=== PATIENT | female | born 1940 | race Caucasian/White ===

== ENCOUNTER 2024-06-09 10:58 | Outpatient (CLI) | payer MEDICARE, SELFPAY | END 2024-06-09 10:59 | disposition home or self-care (01) | LOC: NFLDREF 06-11 21:37 | PROVIDERS: PCP Family Medicine; Referring Provider Family Medicine; Visit Provider Family Medicine | DX: N39.0 Urinary tract infection, site not specified (principal) | CPT/HCPCS: 87086 ==

== ENCOUNTER 2024-06-12 15:54 | Emergency (ER) | payer MEDICARE, SELFPAY ==
[2024-06-12] VITALS (16 sets, daily range): BP systolic 145–182; BP diastolic 58–68; PULSE 69–89; RESP 15–29; TEMP 36.6; O2SAT 95–99; BMI 16.6
--- OUTSIDE RECORDS SUMMARY | 2024-06-12 15:56 | XMS_ITS | Encounter Summary ---
Author Organization [facility] Address [address] [place] [address] Care Team Providers Care Fish And Game Warden Name Role Phone Elsewhere, Pcp Primary Care Provider Unavailabl e Encounter Details Date Type Department Care Team (Late st Contact Info) Description 11/12/2016 Historical Ophthalmology [facility] Afshin Gloria Jr., M.D. [address] [place] [address] Social History Tobacco Use Types Packs/Day Years Used Date Smoking Tobacco: Never Comments Unknown Sex and Gender Information Value Date Recorded Sex Assigned at Female 07/19/2023 8:25 PM CDT Legal Sex Female 7:06 AM FIELD ADMINISTRATOR Gender Identity Female 02/05/2017 9:47 AM FIELD ADMINISTRATOR Sexual Orientation Straight 02/05/2017 9: 47 AM FIELD ADMINISTRATOR documented as of this encounter Progress Notes * Afshin Gloria M.D. - 11/12/2016 12:53 PM CDT Eye General CHIEF COMPLAINT Complete Exam HISTORY OF PRESENT ILLNESS Pt states that she has not noticed any vision changes. Does have a problem with dry eyes and is using Zaditor daily. Lids are dry and uses Refresh PM as needed but continues to have some dryness even when with using. IMPRESSION / REPORT / PLAN #1 Seasonal allergies Continue Zaditor/1 #2 PCIOL Stable #3 Surgical pupil OS Wear sunglasses #4 PVD VF Stable MR only if desired. DIAGNOSIS #1 Seasonal allergies #2 PCIOL #3 Surgical pupil OS #4 PVD VF CDM Reports - EYEGEN Id: [id number] Status: Fnl documented in this encounter Plan of Treatment Not on file documented as of this encounter Visit Diagnoses Not on filedocumented in this encounter Additional Health Concerns Assessment Noted Time PHQ-9 Depression Total Score: 1 10/27/19 17 8:59 AM CDT documented as of this encounter Care Teams Fish And Game Warden Relationship Specialty Start Date End Date Elsewhere, Pcp PCP - General Internal Medicine 05/29/24 [facility] [place] [facility] 06/24/23 [facility] 06/24/23 documented as of this encounter
--- OUTSIDE RECORDS SUMMARY | 2024-06-12 15:56 | XMS_ITS | Encounter Summary ---
Author Organization [facility] Address [address] [place] [address] Care Team Providers Care Keyboard Instrument Tuner Name Role Phone Elsewhere, Pcp Primary Care Provider Unavailabl e Encounter Details Date Type Department Care Team (Late st Contact Info) Description 05/13/2009 Historical Ophthalmology [facility] Richard Cheema M.D. [address] [place] [phone] Social History Tobacco Use Types Packs/Day Years Used Date Smoking Tobacco: Never Assessed Comments Unknown Sex and Gender Information Value Date Recorded Sex Assigned at Female 07/19/2023 8:25 PM CDT Legal Sex Female 7:06 AM BABCOCK TESTER Gender Identity Female 02/05/2017 9:47 AM BABCOCK TESTER Sexual Orientation Straight 02/05/2017 9: 47 AM BABCOCK TESTER documented as of this encounter Progress Notes * Richard Cheema M.D. - 05/13/2009 8:15 AM CDT Eye General CHIEF COMPLAINT Left tear duct plugged. HISTORY OF PRESENT ILLNESS Asked to see patient by Dr. Gloria. Problem started with the left side of her face swelled up in March 2009. Treated with amoxicillin, with relief, but recurred. Referred to Dr. Gloria who prescribed cephalexin and Tobradex for a blocked tear duct. The inflammation again quieted down and has remained quiet. Not using any medication for this presently. Denies nasal or sinus disease, trauma, or surgery but states she has a deviated septum. Has noted excessive tearing from the right eye, as well. Erythromycin allergy: face swelled after oral ingestion. Dr. Gloria did a complete eye exam on April 20. IMPRESSION / REPORT / PLAN #1 History of tearing and dacryocystitis, left eye. Both lacrimal drainage systems are patent to irrigation today. No reflux from the left. She may have had a dacryolith that spontaneously passed, or may still have a stone that may cause nasolacrimal duct obstruction again in the future. If that occurs, I encouraged her to call me. Explained in detail. Letter to Dr. Gloria. DIAGNOSIS #1 History of tearing and dacryocystitis, left eye. CDM Reports - EYEGEN Id: [id number] Status: Fnl documented in this encounter Plan of Treatment Not on file documented as of this encounter Visit Diagnoses Not on filedocumented in this encounter Care Teams Keyboard Instrument Tuner Relationship Specialty Start Date End Date Elsewhere, Pcp PCP - General Internal Medicine 05/29/24 [facility] [place] [facility] 06/24/23 [facility] 06/24/23 documented as of this encounter
--- OUTSIDE RECORDS SUMMARY | 2024-06-12 15:56 | XMS_ITS | Encounter Summary ---
Author Organization [facility] Address [address] [place] [address] Care Team Providers Care Degreasing Solution Reclaimer Name Role Phone Elsewhere, Pcp Primary Care Provider Unavailabl e Encounter Details Date Type Department Care Team (Late st Contact Info) Description 11/03/2009 Historical Ophthalmology [facility] Amilcar Ramirez M.D. [address] [place] [address] Social History Tobacco Use Types Packs/Day Years Used Date Smoking Tobacco: Never Assessed Comments Unknown Sex and Gender Information Value Date Recorded Sex Assigned at Female 07/19/2023 8:25 PM CDT Legal Sex Female 7:06 AM NEEDLE GRINDER Gender Identity Female 02/05/2017 9:47 AM NEEDLE GRINDER Sexual Orientation Straight 02/05/2017 9: 47 AM NEEDLE GRINDER documented as of this encounter Progress Notes * Amilcar Ramirez M.D. - 11/03/2009 7:05 AM CDT Eye General CHIEF COMPLAINT Blind spot in vision; right eye; x 3 weeks HISTORY OF PRESENT ILLNESS This is a 69 year old female here for blind spot in vision; right eye; x 3 weeks; constantly; sudden onset. She is referred by Dr. Gloria for macular hole right eye. Denies floaters and flashes of light. Patient denies ocular pain. AJB: pt awoke with blurred vision RIGHT eye 3 wks ago, stable since then -2 recent dilated exams without complication (pt w/ narrow angles IMPRESSION / REPORT / PLAN Referred by Afshin Gloria M. D. OCT results: 10/2009 right eye: full thickness macular hole with persistent traction left eye: normal foveal contour Color photos consistent with exam. #1 Full thickness macular hole, RIGHT eye -risks, benefits, alternatives to vitrectomy, membrane peeling and gas d/w pt, ?s answered, pt elects to proceed (after CE/IOL RIGHT) #2 trace epiretinal membrane, BOTH eyes #3 Cataracts, BOTH eyes -visually significant BOTH #4 significantly narrow angles -no IOP spike with dilation, but increased risk of high IOP after PPV/MP with intraocular gas -recommend CE/IOL RIGHT prior to vitrectomy surgery (will discuss with Dr. Gloria) -FU 2 wks here after CE/IOL RIGHT w/ Dr. Gloria DIAGNOSIS #1 Full thickness macular hole, RIGHT eye #2 trace epiretinal membrane, BOTH eyes #3 Cataracts, BOTH eyes #4 significantly narrow angles CDM Reports - EYEGEN Id: [id number] Status: Fnl documented in this encounter Plan of Treatment Not on file documented as of this encounter Visit Diagnoses Not on filedocumented in this encounter Care Teams Degreasing Solution Reclaimer Relationship Specialty Start Date End Date Elsewhere, Pcp PCP - General Internal Medicine 05/29/24 [facility] [place] [facility] 06/24/23 [facility] 06/24/23 documented as of this encounter
--- OUTSIDE RECORDS SUMMARY | 2024-06-12 15:57 | XMS_ITS | Clinical Summary ---
Author Organization [facility] Address [address] [place] [id number] Care Team Providers Care Sole Stapler Welt Name Role Phone Pcp, No Primary Care Provider Unavailabl e Allergies Active Allergy Reactions Criticality Noted Date Comments Fexofenadine *Unknown 12/14/2015 Azithromycin Angioedema 04/21/2015 Loratadine *Unknown 12/14/2015 Diatrizoate Allergen *Unknown 12/14/2015 Erythromycin Edema 12/16/2015 Peanut *Unknown 12/19/2015 Cetirizine *Unknown 12/14/2015 Medications montelukast (SINGULAIR) 10 mg tablet Take 10 mg by mouth at bedtime. Active calcium with vitamin D3 (OS-DONNA 500 + D) tablet Take 1 tablet by mouth once daily with a meal. Active ibuprofen (ADVIL; MOTRIN) 100 mg tablet Take 300 mg by mouth 3 times daily. Active diphenhydrAMINE (BENADRYL) 25 mg capsule Take 25 mg by mouth every 4 hours if needed. Active ketotifen (ZADITOR) 0.025 % (0.035 %) ophthalmic solution Place 1 Drop into both eyes every 8 hours if needed for Eye Irritation. Active Social History Tobacco Use Types Packs/Day Years Used Date Smoking Tobacco: Never Smokeless Tobacco: Never Tobacco Cessation:Counseling Given: Yes Alcohol Use Standard Drinks/Week Comments No 0 (1 standard drink = 0.6 oz pur e alcohol) Comments No Sex and Gender Information Value Date Recorded Sex Assigned at Not on file Legal Sex Female 5:20 AM YARN SORTER Gender Identity Not on file Sexual Orientation Not on file Obstetrics History Last Filed Vital Signs Vital Sign Reading Time Taken Comments Blood Pressure 152/76 10/20/2019 1:03 PM CDT tow er Pulse 72 10/20/2019 1:03 PM CDT Temperature 36.6 C (97.9 F) 12/19/2015 9:50 AM CDT Respiratory Rate 16 12/19/2015 11:00 AM CDT Oxygen Saturation 98% 10/20/2019 1:03 PM CDT Inhaled Oxygen Concentration - - Weight 44.3 kg (97 lb 11.2 oz) 10/20/2019 1:03 P M CDT Height 165.1 cm (5' 5) 12/19/2015 7:52 AM CDT Body Mass Index 16.26 12/19/2015 7:52 AM CDT Plan of Treatment Health Maintenance Due Date Last Done Comments Tdap 06/17/1951 Depression screening for age 12+ 1952 Tetanus booster 1960 Pneumococcal series for age 50+ (1 of 1 - PCV) 1990 Zoster (shingles) series for age 50+ (1 of 2) 1990 DEXA/DXA scan for age 65+ 2005 Medicare Wellness for age 65+ 2005 RSV vaccine for adults or pr egnancy (1 - 1-dose 75+ series) 06/17/2015 BMI (ht and wt on same day) for age 18+ 04/20/2016 0 04/21/2015 COVID-19 vaccine series (2023- season) 2023 12/10/2022, 09/21/2021 Influenza Vaccine (Season Ended) 2024 Insurance MEDICARE PART B HB ONLY [place] [address] MEDICARE PART B HB ONLY MEDICARE PART A HB ONLY BLUE CROSS [place] BLUE HB ONLY BLUE CROSS [place] BLUE MR PB ONLY Advance Directives Documents on File Type Date Recorded Patient Scout Executive Expl anation Healthcare Directive 07/07/2013 11:49 AM D [place] EFFECTIVE 11/24/2009 Healthcare Directive 08/17/2011 12:00 AM A DVANCE DIRECTIVE Power of Tobacco Roller 08/16/2011 12:00 AM POA * Full Code (Latest Code Status on File) Date Activated Date Inactivated Comments 12/19/2015 8:30 AM 12/19/2015 1:25 PM Care Teams Sole Stapler Welt Relationship Specialty Start Date End Date Pcp, No . PCP - General 10/20/19
--- OUTSIDE RECORDS SUMMARY | 2024-06-12 15:57 | XMS_ITS | Encounter Summary ---
Author Organization [facility] Address [address] [place] [address] Care Team Providers Care Assistant Professor Of Criminal Justice Name Role Phone Elsewhere, Pcp Primary Care Provider Unavailabl e Encounter Details Date Type Department Care Team (Late st Contact Info) Description 11/10/2015 Historical Ophthalmology [facility] Afshin Gloria Jr., M.D. [address] [place] [address] Social History Tobacco Use Types Packs/Day Years Used Date Smoking Tobacco: Never Assessed Comments Unknown Sex and Gender Information Value Date Recorded Sex Assigned at Female 07/19/2023 8:25 PM CDT Legal Sex Female 7:06 AM STATISTICS INTERN Gender Identity Female 02/05/2017 9:47 AM STATISTICS INTERN Sexual Orientation Straight 02/05/2017 9: 47 AM STATISTICS INTERN documented as of this encounter Progress Notes * Afshin Gloria M.D. - 11/10/2015 9:57 AM CDT Eye General CHIEF COMPLAINT CE HISTORY OF PRESENT ILLNESS Wondering if she can use Zaditor more often, eyes get dry during allergy season. IMPRESSION / REPORT / PLAN #1 Seasonal allergies Continue Zaditor #2 PCIOL Stable #3 Surgical pupil OS Wear sunglasses #4 PVD VF Stable MR only if desired. DIAGNOSIS #1 Seasonal allergies #2 PCIOL #3 Surgical pupil OS #4 PVD VF CDM Reports - EYEGEN Id: [id number] Status: Fnl documented in this encounter Plan of Treatment Not on file documented as of this encounter Visit Diagnoses Not on filedocumented in this encounter Additional Health Concerns Assessment Noted Time PHQ-9 Depression Total Score: 1 10/26/19 16 8:44 AM CDT documented as of this encounter Care Teams Assistant Professor Of Criminal Justice Relationship Specialty Start Date End Date Elsewhere, Pcp PCP - General Internal Medicine 05/29/24 [facility] [place] [facility] 06/24/23 [facility] 06/24/23 documented as of this encounter
--- OUTSIDE RECORDS SUMMARY | 2024-06-12 15:57 | XMS_ITS | Encounter Summary ---
Author Organization [facility] Address [address] [place] [address] Care Team Providers Care Optical Instrument Inspector Name Role Phone Elsewhere, Pcp Primary Care Provider Unavailabl e Encounter Details Date Type Department Care Team (Late st Contact Info) Description 02/08/2010 Historical Ophthalmology [facility] Amilcar Ramirez M.D. [address] [place] [phone] Social History Tobacco Use Types Packs/Day Years Used Date Smoking Tobacco: Never Assessed Comments Unknown Sex and Gender Information Value Date Recorded Sex Assigned at Female 07/19/2023 8:25 PM CDT Legal Sex Female 7:06 AM FELT FINISHER Gender Identity Female 02/05/2017 9:47 AM FELT FINISHER Sexual Orientation Straight 02/05/2017 9: 47 AM FELT FINISHER documented as of this encounter Progress Notes * Amilcar Ramirez M.D. - 02/08/2010 9:35 AM CST Eye Postoperative MULTI-VISIT DOCUMENT This document contains multiple patient visits and is available for review in Document Viewer. CDM Reports - EYEPO Id: [id number] Status: Fnl documented in this encounter Plan of Treatment Not on file documented as of this encounter Visit Diagnoses Not on filedocumented in this encounter Care Teams Optical Instrument Inspector Relationship Specialty Start Date End Date Elsewhere, Pcp PCP - General Internal Medicine 05/29/24 [facility] 06/24/23 [facility] Dental Dentistry 06/24/23 documented as of this encounter
--- OUTSIDE RECORDS SUMMARY | 2024-06-12 15:57 | XMS_ITS | Encounter Summary ---
Author Organization [facility] Address [address] [place] [address] Care Team Providers Care Mobile Homes Repairer Name Role Phone Elsewhere, Pcp Primary Care Provider Unavailabl e Encounter Details Date Type Department Care Team (Late st Contact Info) Description 10/15/2013 Historical Ophthalmology [facility] Afshin Gloria Jr., M.D. [address], [place] [address] Social History Tobacco Use Types Packs/Day Years Used Date Smoking Tobacco: Never Assessed Comments Unknown Sex and Gender Information Value Date Recorded Sex Assigned at Female 07/19/2023 8:25 PM CDT Legal Sex Female 7:06 AM PREPARED FOODS SUPERVISOR Gender Identity Female 02/05/2017 9:47 AM PREPARED FOODS SUPERVISOR Sexual Orientation Straight 02/05/2017 9: 47 AM PREPARED FOODS SUPERVISOR documented as of this encounter Progress Notes * Afshin Gloria M.D. - 10/15/2013 9:12 AM CDT Eye General CHIEF COMPLAINT Pt here for complete eye exam No Va co's IMPRESSION / REPORT / PLAN A) Stable ERM, stable IOL ou P) Hold on MR, rto 1 year CDM Reports - EYEGEN Id: [id number] Status: Fnl documented in this encounter Plan of Treatment Not on file documented as of this encounter Visit Diagnoses Not on filedocumented in this encounter Additional Health Concerns Assessment Noted Time PHQ-9 Depression Total Score: 2 07/08/19 14 10:05 AM CDT documented as of this encounter Care Teams Mobile Homes Repairer Relationship Specialty Start Date End Date Elsewhere, Pcp PCP - General Internal Medicine 05/29/24 [facility] [place] [facility] 06/24/23 [facility] Dental Dentistry 06/24/23 documented as of this encounter
--- OUTSIDE RECORDS SUMMARY | 2024-06-12 15:57 | XMS_ITS | Data Portability ---
Author Organization [place] - [facility], [employer] Address [address] [place] [address] Assessment Encounter Date Assessment Date Assessment LastModified by Organization Details LastModified Time 03/10/2024 03/10/2024 Total nail avulsion performed as documented in procedure section. Educated patient on postprocedure cares (Epsom salt soaks followed by application of triple antibiotic ointment and a band-aid). Patient verbalized understanding and is in agreement with the above treatment plan. Patient will return to clinic in 2-3 weeks for reevaluation. [email or web address] Not available 03/10/2024 16:39:17 Plan of Treatment Reminders Order Date Submit Date Provider Last Modified By Organization Details Last Modified Time Details Appointments None record ed. Lab None record ed. Referral None record ed. Procedures None record ed. Surgeries None record ed. Imaging None record ed. Medication Orders None record ed. Patient TargetsNo targets recorded. Patient InstructionsNo instructions recorded. Reason for Referral None Reported. Problems Name Problem SNOMED Code Status Onset Date Resolution Date Notes Provider Name and Address Organization Details Recorded Time Disorder of tendon 58820258 Active 2014 Disorder of tendon; Original Code: 454031542 Original Codesystem : SNOMED CT Classif ication: Medical Co nfirmation Status: Confirmed Not Available [facility] 3 09:15:43 Acquired equinus deformity of foot 10303691 Active 2014 Acquired equinus deformity of foot; Original Code: 20991494 O riginal Codesystem : SNOMED CT Classif ication: Medical Co nfirmation Status: Confirmed Not Available [facility] 3 09:15:43 Acquired hallux valgus 23741472 Active 2014 Acquired hallux valgus; Original Code: 662373389 Original Codesystem : SNOMED CT Classif ication: Medical Co nfirmation Status: Confirmed Not Available [facility] 3 09:15:43 Allergic rhinitis 19831518 Active 2014 Allergic rhinitis; Original Code: 891356049 Original Codesystem : SNOMED CT Classif ication: Medical Co nfirmation Status: Confirmed Not Available [facility] 3 09:15:43 Notes:Diabetes mellitus type II Original Code: 05605777 Original Codesystem: SNOMED CT Classification: Medical Confirmation Status: Confirmed Problem Notes None recorded. Procedures Surgical History Date Name Laterality Status Provider Name and Address Organization Details Recorded Time 03/10/2024 mkmi&dtota l completed MIO PORTILLO, EDDIE [address] [place], [address], [facility] 03/10/2024 16:37:26 Imaging Results None recorded. Procedure Notes None recorded. Medical Equipment None Reported. Allergies Allergen ID Allergen Name Allergen Category Reaction Reaction Severity Criticality Documentation Date Start Date Code Code System Note Provider Name and Address Organization Details Recorded Time 04658 erythromy garcía medicatio n Not available Not available Not available 04/24/2022 4053 RxNorm Comme nt: React ion Class : Aller gy Al lergy Ident ifier : d0004 6 All ergy Categ ory: Multu m Drug Ident ifier Iden tifie r Assig jessica Autho rity: [address] _[place]_F [place] ; Not Available [facility] 3 08:57:42 11957 doxycycli ne Not available Not available Not available Not available 03/10/2024 3640 RxNorm Bailee menon [facility] 5 09:59:36 Medications Name Sig Start Date Stop Date Status Note LastModified by Organization Details LastModified Time atorvastati n 10 mg tablet TAKE ONE TABLET BY MOUTH EVERY DAY 03/10 completed Not Available Not Available Not Available montelukast 10 mg tablet TAKE ONE TABLET BY MOUTH EVERY EVENING 03/10 completed Not Available Not Available Not Available lisinopril 5 mg tablet TAKE ONE TABLET BY MOUTH EVERY DAY active Not Available Not Available No t Available clobetasol 0.05 % topical ointment APPLY 1 APPLICATI ON TOPICALLY DAILY 03/10 completed Not Available Not Available Not Available mometasone 0.1 % topical cream APPLY 1 APPLICATI ON TOPICALLY 2 TIMES A DAY NEEDED FOR EYE LID RASH. 03/10 completed Not Available Not Available Not Available Vitals Date Recorded Body weight Body mass index (BMI) Body height Provider Name and Address Organization Details Last Updated DateTime 03/09/2024 10274.24 g 16.6 kg/m2 165.1 cm Bailee Hurtado [place] - [facility] 03/10/2024 15:20:41 Social History None recorded. Functional Status None recorded. Mental Status None recorded. Family History Nothing Reported. Medical History No medical history recorded. Gynecological HistoryNo gynecological history recorded. Obstetrics History GPAL:G 0 P 0 0 0 0 Past Encounters Encounter ID Performer Location Encounter Start Date Encounter Closed Date Diagnosis/Indication Diagnosis SNOMED-CT Code Diagnosis ICD10 Code Diagnosis Note [id number] MIO LINDSEYEDDIE AC [facility] [address] [place] [address] 03/09/2024 11:10:44 03/10/2024 11:49:53 Subungual hematoma of great toe 916217153 S90.212A Educated patient on the etiology, prognosis, treatment options for subungual hematoma. Ordered four weightbear ing radiograph s of the left foot at [facility] and reviewed my individual findings with patient as noted above. I explained to the patient that there was no fracture based on the radiograph s. I explained that the pain is likely due to the subungual hematoma and the pressure from the bunion. For the subungual hematoma of the left hallux, given her discomfort and evidence of subungual hematoma, we discussed the utility of a total nail avulsion to alleviate the pain. Reviewed risks and benefits of the procedure. The patient agreed to proceed with the toenail removal. I scheduled the procedure for the following day at the [place] [facility]. I informed the patient that the toenail would take about eight to ten months to grow back. For the hallux valgus of the left foot, I discussed the significan t bunion and its contributi on to the pain and pressure on the toe. I advised the patient to continue wearing her custom orthotics to help manage the condition. Patient verbalized understand ing and is in agreement with the above treatment plan. Pain of to e of left foot 0059898098 74207 M79.675 Acquired l eft hallux valgus 2488148985 84999 M20.12 Acquired r ight hallux valgus 3384757949 45380 M20.11 Acquired h ammer toe of right foot 1798491964 741487 M20.41 Acquired h ammer toe of lesser toe of left foot 3665424326 1887652 M20.42 [id number] MIO PORTILLO DPM [facility] [address] [place] [address] 03/10/2024 14:48:47 03/11/2024 09:36:58 Subungual hematoma of great toe 393002432 S90.212A Pain of to e of left foot 5376297903 13031 M79.675 Acquired l eft hallux valgus 5992356024 66902 M20.12 Acquired r ight hallux valgus 9634698574 96925 M20.11 Acquired h ammer toe of right foot 0688379947 330911 M20.41 Acquired h ammer toe of lesser toe of left foot 8939443816 6470533 M20.42 [id number] MIO PORTILLO DPM [address] [address] 03/30/2024 11:03:34 03/31/2024 10:12:55 Subungual hematoma of great toe 934752602 S90.212A Discussed medical condition with patient today. Procedure site appears to be healing uneventful ly with no signs of infection on exam. At this time, patient may discontinu e foot soaks and triple antibiotic ointment/B and-Aid applicatio n. Encouraged patient to monitor the area daily basis. For the hyperkerat otic lesion of the left hallux, I debrided the callus to alleviate discomfort . I discussed the use of a toe spacer to prevent the hallux from overlappin g the adjacent toe, which may help reduce the formation of future calluses. I provided the patient with a toe cap sleeve to cushion the area and reduce pressure from shoes. Instructed her on proper use. I provided the patient with my contact informatio n and instructed them to call if they experience increased pain or any other concerns. Patient verbalized understand ing and is in agreement with the above treatment plan. Pain of to e of left foot 9128852131 83445 M79.675 Acquired l eft hallux valgus 8166043824 75226 M20.12 Acquired r ight hallux valgus 7112248404 02544 M20.11 Acquired h ammer toe of right foot 6790935253 860182 M20.41 Acquired h ammer toe of lesser toe of left foot 9224010788 2854052 M20.42 Health Concerns Section Related Observation LastModified by Organization Detai ls LastModified Time None Recorded Concern Status LastModified by Organization Details LastModified Time None Recorded Advance Directives Directive None Recorded Payers Encounter Date Sequence Insurance Name Policy Number Policy Caro Covered Member ID Caro Member ID Guarantor Name 03/09/2024 1 [facility] (MEDIC[place]AC[place] [id number] Fabiana A Ceplecha [id number] Fabiana A Ceplecha 03/10/2024 1 [place] [employer] Fabiana A Ceplecha [id number] Fabiana A Ceplecha 03/30/2024 1 [place] [employer] Fabiana A Ceplecha [id number] Fabiana A Ceplecha Notes Date Note Type Note Provider Name and Address Organization Details Recorded Time 03/09/2024 text/html The patient presents with pain in the left hallux, specifically on the outside and tip of the toenail. The pain began about a month ago, although the patient dropped a heavy cast iron skillet on the toe at the end of September or early October. Initially, the injury did not cause significant pain, but it has progressively worsened over the past month. The pain is exacerbated by walking. The patient has not seen any other providers for this issue and did not seek medical attention immediately after the injury. States that there has been dried blood underneath the nail since the injury. MIO PORTILLO, EDDIE [address] [place], [address], [facility] 03/10/2024 10:19:31 03/10/2024 text/html Patient presents today for scheduled total nail avulsion of the left hallux. Denies any questions or changes since last being seen. PRIOR HISTORY:The patient presents with pain in the left hallux, specifically on the outside and tip of the toenail. The pain began about a month ago, although the patient dropped a heavy cast iron skillet on the toe at the end of September or early October. Initially, the injury did not cause significant pain, but it has progressively worsened over the past month. The pain is exacerbated by walking. The patient has not seen any other providers for this issue and did not seek medical attention immediately after the injury. States that there has been dried blood underneath the nail since the injury. MIO PORTILLO, EDDIE [address] [place], [address], [facility] 03/10/2024 16:40:55 03/30/2024 text/html Patient presents today with her son s/p total nail avulsion to the left hallux. The patient reports that the toe has been healing as expected but still experiences some soreness, especially when pressure is applied to a callus to the tip of the toe. The patient has been soaking the toe twice a day. The patient also notes that the hallux sits on top of the adjacent toe, which may be contributing to the formation of the callus. PRIOR HISTORY:The patient presents with pain in the left hallux, specifically on the outside and tip of the toenail. The pain began about a month ago, although the patient dropped a heavy cast iron skillet on the toe at the end of September or early October. Initially, the injury did not cause significant pain, but it has progressively worsened over the past month. The pain is exacerbated by walking. The patient has not seen any other providers for this issue and did not seek medical attention immediately after the injury. States that there has been dried blood underneath the nail since the injury. MIO PORTILLO DPM [address] [place], [address], [facility] 03/30/2024 20:21:45 OBGyn Episode No OBEpisode recorded.
--- OUTSIDE RECORDS SUMMARY | 2024-06-12 15:57 | XMS_ITS | Encounter Summary ---
Author Organization [facility] Address [address] [place] [address] Care Team Providers Care Heating Element Repairer Name Role Phone Elsewhere, Pcp Primary Care Provider Unavailabl e Encounter Details Date Type Department Care Team (Late st Contact Info) Description 11/24/2009 Historical Ophthalmology [facility] Amilcar Ramirez M.D. [address] [place] [address] Social History Tobacco Use Types Packs/Day Years Used Date Smoking Tobacco: Never Assessed Comments Unknown Sex and Gender Information Value Date Recorded Sex Assigned at Female 07/19/2023 8:25 PM CDT Legal Sex Female 7:06 AM ASBESTOS REMOVAL WORKER Gender Identity Female 02/05/2017 9:47 AM ASBESTOS REMOVAL WORKER Sexual Orientation Straight 02/05/2017 9: 47 AM ASBESTOS REMOVAL WORKER documented as of this encounter Progress Notes * Amilcar Ramirez M.D. - 11/24/2009 7:38 AM CDT Eye General CHIEF COMPLAINT return following cataract surgery HISTORY OF PRESENT ILLNESS This is a 69 year old female here for an evaluation of macular hole. She is 2 weeks status post cataract surgery in the right eye. Currently using Omnipred 2x day in the right eye. Patient states vision is brighter, but there is still a spot in the middle. Patient denies ocular pain. Denies flashesof light; occasional floaters. IMPRESSION / REPORT / PLAN Referred by Afshin Gloria M. D. OCT results: 10/2009 right eye: full thickness macular hole with persistent traction left eye: normal foveal contour Color photos consistent with exam. #1 Full thickness macular hole, RIGHT eye -risks, benefits, alternatives to vitrectomy, membrane peeling and gas d/w pt, ?s answered, pt elects to proceed #2 trace epiretinal membrane, BOTH eyes #3 Cataracts, LEFT eye -visually significant #4 Pseuodophakic, RIGHT eye -looks good #5 significantly narrow angle, LEFT -markedly improved RIGHT eye after CE/IOL RIGHT by Dr. Gloria - post operatively DIAGNOSIS #1 Full thickness macular hole, RIGHT eye #2 trace epiretinal membrane, BOTH eyes #3 Cataracts, LEFT eye #4 Pseuodophakic, RIGHT eye #5 significantly narrow angle, LEFT CDM Reports - EYEGEN Id: [id number] Status: Fnl documented in this encounter Plan of Treatment Not on file documented as of this encounter Visit Diagnoses Not on filedocumented in this encounter Care Teams Heating Element Repairer Relationship Specialty Start Date End Date Elsewhere, Pcp PCP - General Internal Medicine 05/29/24 [facility] [place] [facility] 06/24/23 [facility] Dentistry 06/24/23 documented as of this encounter
--- OUTSIDE RECORDS SUMMARY | 2024-06-12 15:57 | XMS_ITS | Encounter Summary ---
Author Organization [facility] Address [address] [place] [address] Care Team Providers Care Study Abroad Advisor Name Role Phone Elsewhere, Pcp Primary Care Provider Unavailabl e Encounter Details Date Type Department Care Team (Late st Contact Info) Description 10/22/2014 Historical Ophthalmology [facility] Afshin Gloria Jr., M.D. [address] [place] [address] Social History Tobacco Use Types Packs/Day Years Used Date Smoking Tobacco: Never Assessed Comments Unknown Sex and Gender Information Value Date Recorded Sex Assigned at Female 07/19/2023 8:25 PM CDT Legal Sex Female 7:06 AM FLOOR CARE SPECIALIST Gender Identity Female 02/05/2017 9:47 AM FLOOR CARE SPECIALIST Sexual Orientation Straight 02/05/2017 9: 47 AM FLOOR CARE SPECIALIST documented as of this encounter Progress Notes * Afshin Gloria M.D. - 10/22/2014 9:37 AM CDT Eye General CHIEF COMPLAINT CE HISTORY OF PRESENT ILLNESS Pt here for complete eye exam No Va co's IMPRESSION / REPORT / PLAN A) Stable eye exam P) Zaditor BID x 2 weeks, then prn CDM Reports - EYEGEN Id: [id number] Status: Fnl documented in this encounter Plan of Treatment Not on file documented as of this encounter Visit Diagnoses Not on filedocumented in this encounter Additional Health Concerns Assessment Noted Time PHQ-9 Depression Total Score: 0 07/14/19 15 10:04 AM CDT documented as of this encounter Care Teams Study Abroad Advisor Relationship Specialty Start Date End Date Elsewhere, Pcp PCP - General Internal Medicine 05/29/24 [facility] [place] [facility] 06/24/23 [facility] Dentistry 06/24/23 documented as of this encounter
--- OUTSIDE RECORDS SUMMARY | 2024-06-12 15:57 | XMS_ITS | Encounter Summary ---
Author Organization [facility] Address [address] [place] [address] Care Team Providers Care Craft Recruiter Name Role Phone Elsewhere, Pcp Primary Care Provider Unavailabl e Encounter Details Date Type Department Care Team (Late st Contact Info) Description 01/24/2010 Historical Ophthalmology [facility] Chuck Ruiz M.D., M.S. [address] [place] [address] Social History Tobacco Use Types Packs/Day Years Used Date Smoking Tobacco: Never Assessed Comments Unknown Sex and Gender Information Value Date Recorded Sex Assigned at Female 07/19/2023 8:25 PM CDT Legal Sex Female 7:06 AM ELECTRIC WHEELCHAIR REPAIRER Gender Identity Female 02/05/2017 9:47 AM ELECTRIC WHEELCHAIR REPAIRER Sexual Orientation Straight 02/05/2017 9: 47 AM ELECTRIC WHEELCHAIR REPAIRER documented as of this encounter Progress Notes * Chuck Ruiz M.D. - 01/24/2010 8:58 AM CST Eye Postoperative MULTI-VISIT DOCUMENT This document contains multiple patient visits and is available for review in Document Viewer. CDM Reports - EYEPO Id: [id number] Status: Fnl documented in this encounter Plan of Treatment Not on file documented as of this encounter Visit Diagnoses Not on filedocumented in this encounter Care Teams Craft Recruiter Relationship Specialty Start Date End Date Elsewhere, Pcp PCP - General Internal Medicine 05/29/24 [facility] Optometry 06/24/23 [facility] Dental Dentistry 06/24/23 documented as of this encounter
--- OUTSIDE RECORDS SUMMARY | 2024-06-12 15:57 | XMS_ITS | Encounter Summary ---
Author Organization [facility] Address [address] [place] [address] Care Team Providers Care Naturopathic Doctor Name Role Phone Elsewhere, Pcp Primary Care Provider Unavailabl e Encounter Details Date Type Department Care Team (Late st Contact Info) Description 06/28/2010 Historical Ophthalmology [facility] Amilcar Ramirez M.D. [address] [place] [address] Social History Tobacco Use Types Packs/Day Years Used Date Smoking Tobacco: Never Assessed Comments Unknown Sex and Gender Information Value Date Recorded Sex Assigned at Female 07/19/2023 8:25 PM CDT Legal Sex Female 7:06 AM TAX ANALYST Gender Identity Female 02/05/2017 9:47 AM TAX ANALYST Sexual Orientation Straight 02/05/2017 9: 47 AM TAX ANALYST documented as of this encounter Progress Notes * Amilcar Ramirez M.D. - 06/28/2010 7:11 AM CDT Eye General CHIEF COMPLAINT check up after surgery HISTORY OF PRESENT ILLNESS Patient states that since last visit here in January 2010, she had cataract surgery on her left eye in March by Dr. Gloria in [place], [place]. She did get new glasses since cataract surgery. She denies any vision acuity concerns at distance or near with either eye. She denies flashes of light, floaters, pain or pressure with either eye. 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
--- OUTSIDE RECORDS SUMMARY | 2024-06-12 15:57 | XMS_ITS | Clinical Summary ---
Author Organization [facility] Address [address] [place] [address] Care Team Providers Care Travel Attendants Name Role Phone Elsewhere, Pcp Primary Care Provider Unavailabl e Source Comments Patient records contain information from all sites at [facility]. For routine questions regarding patient records, call [phone] during business hours, M-F 8:00 AM - 5:00 PM Central Time. Record requests for emergency care only can be directed to [phone] at any time.[facility] Allergies Active Allergy Reactions Criticality Noted Date Comments Azithromycin Angioedema (Reselect Reaction) 04/21/2015 Cetirizine Other (see comments) 11/04/2009 Iodinated Contrast Media Other (see comments) 0 11/04/2009 Erythromycin Other (see comments) 11/04/2009 Fexofenadine Other (see comments) 11/04/2009 Loratadine Other (see comments) 11/04/2009 Peanut Other (see comments) 12/19/2015 ANY NUTS Medications * This document contains information received from the source organization and may not represent a complete record from that organization. CALCIUM CARB/VIT D3/MINERALS (CALCIUM-VITAMI N D ORAL) Take 1 tablet by mouth daily. 0 Active dextran 70/hypromellose (GENTEAL TEARS MILD OPHT) Administer 1 drop into affected eye(s) as needed. Active UNABLE TO FIND daily. Med Name: sinus rinse Active acetaminophen (TYLENOL) 325 mg tablet Take 325-650 mg by mouth every 4 (four) hours as needed for pain or headaches. Active white petrolatum (Aquaphor Healing) 41 % ointment Apply topically as needed. Apply to dry eye lids as needed Active clobetasoL (TEMOVATE) 0.05 % ointment Apply 1 Application topically daily. 30 g 4 Active lisinopriL (PRINIVIL,ZESTR IL) 5 mg tabletIndicatio ns:Hypertensive Chronic Kidney Disease (CKD) Stage 3a Glomerular Filtration Rate (GFR) 45 To 59 (HCC) Take 1 tablet (5 mg total) by mouth daily. 90 tablet 3 4 Active mometasone (ELOCON) 0.1 % cream Apply 1 Application topically 2 (two) times a day as needed (eye lid rash). 45 g 2 4 Active montelukast (Singulair) 10 mg tabletIndicatio ns:Rhinitis Allergic Take 1 tablet (10 mg total) by mouth every evening. 90 tablet 3 4 06/24/19 25 Active Additional Information Patient taking differently:10 mg oral Every evening,As needed, Reported on 08/29/2023 Active Problems Problem Noted Date Diagnosed Date Hyperparathyroidism Primary 04/28/2021 Hypercalcemia 12/05/2020 Hyperlipidemia Mixed 11/24/2018 Rhinitis Allergic 11/24/2018 Osteoporosis 11/24/2018 Overview (11/24/2018): most recent DEXA on 09/24/2017 Loss Hearing Sensorineural Bilateral 07/07/2013 Overview (12/03/2019): confrimned audiology and ENT Hypertensive Chronic Kidney Disease With Stage 1 Through Stage 4 Chronic Kidney Disease, Or Unspecified Chronic Kidney Disease Overview (12/18/2019): December 17, 2019: eGFR 51 Resolved Problems Problem Noted Date Diagnosed Date Resolved Date History Of Falling 12/03/2019 1 Impaired Fasting Glucose 11/24/2018 Encounters Date Type Department Care Team Description 04/21/2024 Orders Only [facility] PCP [facility] Saniya Shea M.D. Screening Examination Diabetes Mellitus; Monitoring For Therapeutic Drug Therapy from Last 3 Months Immunizations Immunization Administration Dates Next Due HZV (ZOSTAVAX) 10/26/2016 Influenza, Quadrivalent, Adj uvanted, Preservative Free 11/12/2022,11/21/2021,11/21/2020,2019 Influenza, Seasonal, Injectable 11/26/19 13,11/26/2011,11/28/2009,2008,12/09/2007,12/09/2006,12/18/2005,1 Influenza, Unspecified 11/27/2016,2015,11/23/2014,2013,11/26/2011,12/01/2010,11/28/2009 PCV13 07/13/2014 PPSV23 07/31/2005 RSV: respiratory syncytial v irus (ABRYSVO) bivalent vaccine 01/23/2023 RZV (SHINGRIX) 12/27/2022,10/03/2022 SARS-COV-2 (COVID-19) - MODE RNA (12 YEARS AND OLDER) Fall Seasonal 12/10/2022 SARS-COV-2 (COVID-19) - PFIZ ER TS(Discontinued)(12 years or older) 09/21/2021 Td (Adult), adsorbed 11/15/2009 Td Preservative Free (TENIVA C, DECAVAC) 11/15/2009 Tdap 12/03/2019 influenza trivalent high dos e (HD)(PF) 11/24/2018,12/03/2017,11/23/2014 influenza vaccine quad (FLUZONE/FLUARIX) (6 months and older)(PF) 11/27/2016,11/21/2015 Family History Medical History Relation Name Comments Hyperlipidemia Daughter 1 Nery Hyperlipidemia Daughter 2 [place] No Known Problems Daughter 3 Lindsey No Known Problems Daughter 4 Maddison Hyperlipidemia Daughter 5 [place] Westrum Migraines Daughter 5 [place] Westrum Coronary artery disease Father Jose Enrique Trevino Hyperlipidemia Father Jose Enrique Trevino Pacemaker rhythm Father Jose Ernique Trevino Breast cancer Father's Sister 1 Breast cancer Father's Sister 2 Heart attack Maternal Grandfather Heart attack Maternal Grandmother Anxiety disorder Mother Jo Ann Trevino Asthma Mother Jo Ann Trevino Drug abuse Mother Jo Ann Trevino Heart disease Mother Jo Ann Trevino Hypertension Mother Jo Ann Trevino Osteoporosis Mother Jo Ann Trevino No Known Problems Paternal Grandfather Stroke Paternal Grandmother Arthritis Sister jonathan Hypertension Sister jonathan Hyperlipidemia Son Charles Relation Name Status Comments Daughter 1 Nery Alive Daughter 2 [place] Alive Daughter 3 Lindsey Alive Daughter 4 Maddison Alive Daughter 5 [place] Westrum Father Jose Enrique Trevino (Age 92) Father's Sister 1 Father's Sister 2 Maternal Grandfather (Age 70) Maternal Grandmother (Age 70) Mother Jo Ann Trevino (Age 92) Paternal Grandfather (Age 85) Paternal Grandmother (Age 70) Sister jonathan Alive Son Charles Alive Social History Tobacco Use Types Packs/Day Years Used Date Smoking Tobacco: Never Smokeless Tobacco: Never Tobacco Cessation:Counseling Given: Yes Alcohol Use Standard Drinks/Week Comments No 0 (1 standard drink = 0.6 oz pur e alcohol) [facility] [employer] Answer Date Recorded In the past 12 months has [facility] [employer], [employer], or water [employer] threatened to shut off services in your home? No 07/19/2023 Humiliation, Afraid, Rape, and Kick questionnair e Answer Date Recorded Within the last year, have y ou been afraid of your partner or ex-partner? No 12/05/2020 Within the last year, have y ou been humiliated or emotionally abused in other ways by your partner or ex-partner? No Within the last year, have y ou been kicked, hit, slapped, or otherwise physically hurt by your partner or ex-partner? No 12/05/2020 Within the last year, have y ou been raped or forced to have any kind of sexual activity by your partner or ex-partner? No 12/05/2020 Social Connection and Isolat ion Panel [NHANES] Answer Date Recorded In a typical week, how many times do you talk on the phone with family, friends, or neighbors? Three times a week 12/05/2020 How often do you get togethe r with friends or relatives? Once a week 12/05/2020 How often do you attend [facility] or congregational services? More than 4 times per year 12/05/2020 Do you belong to any clubs o r organizations such as christian groups, unions, fraternal or athletic groups, or school groups? Yes 12/05/2020 How often do you attend meet ings of the clubs or organizations you belong to? More than 4 times per year 12/05/2020 Are you , , di vorced, , never , or living with a partner? 12/05/2020 AUDIT-C Answer Date Recorded Q1: How often do you have a drink containing alc ohol? Never 12/05/2020 Average Number of Drinks Not on file 021 Frequency of Binge Drinking Not on file 11/18 Overall Financial Resource Strain (CARDIA) Answe r Date Recorded How hard is it for you to pa y for the very basics like food, housing, medical care, and heating? Not very hard 12/05/2020 PHQ-2 Answer Date Recorded PHQ-2 Score 0 06/24/2023 [facility] - Occupational Stress Questionnaire Answer Date Recorded Do you feel stress - tense, restless, nervous, or anxious, or unable to sleep at night because your mind is troubled all the time - these days? Only a little 12/05/2020 Exercise Vital Sign Answer Date Recorde d On average, how many days pe r week do you engage in moderate to strenuous exercise (like a brisk walk)? Patient declined On average, how many minutes do you engage in exercise at this level? Patient declined 06/24/2023 Hunger Vital Sign Answer Date Recorded Within the past 12 months, y ou worried that your food would run out before you got the money to buy more. Never true 07/19/19 24 Within the past 12 months, t he food you bought just didn't last and you didn't have money to get more. Never true 07/19/2023 PRAPARE - Transportation Answer Date Re corded In the past 12 months, has l ack of transportation kept you from medical appointments or from getting medications? No 06/20 In the past 12 months, has l ack of transportation kept you from meetings, work, or from getting things needed for daily living? No 07/19/2023 Depression Answer Date Recor ded PHQ-9 Total Score (max 27) 1 12/05 Nutrition Answer Date Recorded On average, how many serving s of fruits and vegetables do you eat per day (serving size is equal to 1 cup or approximately the size of a tennis ball)? 3-5 06/24/2023 Dental Answer Date Recorded Dental: Regular Dentist Yes 02/18/19 Employment Answer Date Recorded Employment status Retired 06/24/2023 Housing Stability Answer Date Recorded What is your living situation today? I have a [facility] place to live 07/19/2023 Education Answer Date Recorded What is the highest level of school you have completed or the highest degree you have received? 12th grade 12/05/2020 Comments No Sex and Gender Information Value Date Recorded Sex Assigned at Female 07/19/2023 8:25 PM CDT Legal Sex Female 7:06 AM HOUSING INSTALLER Gender Identity Female 02/05/2017 9:47 AM HOUSING INSTALLER Sexual Orientation Straight 02/05/2017 9: 47 AM HOUSING INSTALLER Last Filed Vital Signs Vital Sign Reading Time Taken Comments Blood Pressure 133/71 01/31/2024 11:23 AM HOUSING INSTALLER Pulse 72 01/31/2024 11:23 AM HOUSING INSTALLER Temperature 36.5 C (97.7 F) 01/31/2024 11:23 AM HOUSING INSTALLER Respiratory Rate 16 01/31/2024 11:23 AM HOUSING INSTALLER Oxygen Saturation 98% 01/31/2024 11:23 AM HOUSING INSTALLER Inhaled Oxygen Concentration - - Weight 42.7 kg (94 lb 3.2 oz) 08/29/2023 9:18 AM CDT Height 162.3 cm (5' 3.9) 07/26/2023 9:24 AM CDT Body Mass Index 16.22 07/26/2023 9:24 AM CDT Plan of Treatment Health Maintenance Due Date Last Done Comments COVID-19 Vaccine ( season) 2023 12/10/2022, 09/21/2021, 11/25/2020, Additional history exists Influenza Vaccine (#1) 2023 , 11/21/2021, 11/21/2020, Additional history exists Depression Screening (Annual PHQ-2) 02/19/2024 Fall Risk Screen (Annual) 02/19/2024 Fasting Glucose for Diabetes Screening 07/15/2024 07/16/2023, 08/10/2022, 07/11/2022, Additional history exists Potassium Level 07/15/2024 07/16/2023, 07/20, 07/11/2022, Additional history exists Sodium Level 07/15/2024 07/16/2023, 07/20, 07/11/2022, Additional history exists Creatinine Level (Kidney Function Test) 01/30/2025 01/31/2024, 07/16/2023, 08/10/2022, Additional history exists Office Visit for Blood Pressure Check / Re-check 01/30/2025 01/31/2024 DTaP,Tdap,and Td Vaccines (2 - Td or Tdap) 12/02/2029 12/03/2019, 11/15/2009, 11/15/2009 Pneumococcal vaccine (50+ years) Completed 07/13/2014, 07/31/2005 Mammogram Discontinued 12/29/2020, 11/18, 11/27/2017, Additional history exists Zoster Vaccines Completed 12/27/2022, 09/18, 10/26/2016 RSV vaccine - (32-36 weeks) or 60+ years Completed 01/23/2023 Visit: Medicare Annual Wellness Discontinued 06/24/2023 IPV Vaccines Aged Out No longer eligi ble based on patient's age to complete this topic Goals Goal Patient Goal Type Associated Problems Recent Progress Patient-Stated? Author Eat a balanced, healthy diet Diet No Shilpa Sotelo R.N. Note: Continue 30 minutes 3x a week Exercise No Shilpa Sotelo, R.N. Note: Continue Medical Devices Implanted Type Area Color Straining Bag Washer Device Identifier Shelf Expiration Date Model / Serial / Lot Ocular Lens Ocular Lens Eye Procedures Procedure Name Priority Date/Time Associated Diagnosis Comments CREATININE WITH EGFR, S/P Routine 01/31/2024 10:26 AM HOUSING INSTALLER Hyperparathyroidi sm Primary (HCC) Hypertensive Chronic Kidney Disease With Stage 1 Through Stage 4 Chronic Kidney Disease, Or Unspecified Chronic Kidney Disease Osteoporosis HEMOGLOBIN A1C, B Routine 07/16/2023 8:5 1 AM CDT Impaired Fasting Glucose SODIUM, S/P Routine 07/16/2023 8:51 AM CDT Hypertensive Chronic Kidney Disease (CKD) Stage 3a Glomerular Filtration Rate (GFR) 45 To 59 POTASSIUM, S/P Routine 07/16/2023 8:51 AM CDT Hypertensive Chronic Kidney Disease (CKD) Stage 3a Glomerular Filtration Rate (GFR) 45 To 59 BI BREAST SCREENING BILATERAL WITH TOMOSYNTHESIS RAD - Routine (most inpatients and all outpatients) 12/29/2020 9:14 AM HOUSING INSTALLER Screening Mammogram Breast Cancer from Last 3 Months or Most Recently Relevant to Health Maintenance Results * (ABNORMAL) Creatinine with Estimated GFR (01/31/2024 10:26 AM HOUSING INSTALLER) Creatinine 1.12(H) 0.59 - 1.04 mg/dL 01/31/2024 11:02 AM HOUSING INSTALLER NPRG Estimated GFR (eGFR) 49(L) >=60 mL/min/BSA 01/31/2024 11:02 AM HOUSING INSTALLER NPRG Comment: Estimated GFR calculated using the 2020 CKD_EPI creatinine equation. Blood (Blood, Venous) 01/31/2024 10:26 AM HOUSING INSTALLER 01/31/2024 10:30 AM HOUSING INSTALLER Deborah Ray APRN, C.N.P. LAB BLOOD ADD-ON Fi nal Result [facility] [address] [place] [address], [place] NPRG [facility] [address] [place] [address] * Sodium (07/16/2023 8:51 AM CDT) Sodium, P 138 135 - 145 mmol/L 07/16/2023 11:22 AM CDT NPRG Blood (Blood, Venous) 07/16/2023 8:51 AM CDT 07/16/2023 10:44 AM CDT Saniya Shea M.D. LAB BLOOD ADD-ON Final Resu lt [facility] [address] [place] [address], [facility] NPRG [address] [place] [address] * Potassium (07/16/2023 8:51 AM CDT) Potassium, P 4.3 3.6 - 5.2 mmol/L 07/16/2023 11:22 AM CDT NPRG Blood (Blood, Venous) 07/16/2023 8:51 AM CDT 07/16/2023 10:44 AM CDT us Saniya Shea M.D. LAB BLOOD ADD-ON Final Resu lt Performing Organization Address City/[facility]/ZIP Co de Phone Number [facility] [address] [place] [address], [facility] NPRG [address] [place] [address] * Hemoglobin A1c (07/16/2023 8:51 AM CDT) Hemoglobin A1c, B 5.5 4.2 - 5.6 % 07/16/2023 11:26 AM CDT NPRG Blood (Blood, Venous) 07/16/2023 8:51 AM CDT 07/16/2023 10:44 AM CDT Saniya Shea M.D. LAB BLOOD ADD-ON Final Resu lt [facility] [address] [place] [address], [facility] NPRG [address] [place] [address] * BI Breast Screening Bilateral with Tomosynthesis (12/29/2020 9:14 AM HOUSING INSTALLER) Anatomical Region Laterality Modality Breast, Breast Imaging RST L OS, Breast Imaging ARZ LOS, Breast Imaging FLA LOS Bilateral Mammography 12/29/2020 12:5 5 PM HOUSING INSTALLER Impressions 12/29/2020 12:56 PM HOUSING INSTALLER Negative. RECOMMENDATION: Annual Screening Mammogram ASSESSMENT: BI-RADS: 1: Negative. Narrative 12/29/2020 12:56 PM HOUSING INSTALLER EXAM: BI BREAST SCREENING BILATERAL WITH TOMOSYNTHESIS Current study was evaluated with a Computer Aided Detection (CAD) system. INDICATION: Screening mammogram. COMPARISON: Prior exam(s) were available and reviewed for comparison. DENSITY: c. The breast(s) are heterogeneously dense, which may obscure small masses. FINDINGS: No findings of malignancy. No significant change since prior exam. Procedure Note Wilian Rodriges M.D. - 12/29/2020 EXAM: BI BREAST SCREENING BILATERAL WITH TOMOSYNTHESIS Current study was evaluated with a Computer Aided Detection (CAD) system. INDICATION: Screening mammogram. COMPARISON: Prior exam(s) were available and reviewed for comparison. DENSITY: c. The breast(s) are heterogeneously dense, which may obscuresmall masses. FINDINGS: No findings of malignancy. No significant change since priorexam. IMPRESSION: Negative. RECOMMENDATION: Annual Screening Mammogram ASSESSMENT: BI-RADS: 1: Negative. Ricardo Gutierres P.A.-C. IMG BI PROCEDURES Yuliana l Result from Last 3 Months or Most Recently Relevant to Health Maintenance Insurance [facility] MEDICARE Advance Directives For more information, please contact: [phone] Documents on File Type Date Recorded Patient Criminal Justice Program Director Expl anation Advance Directives 08/12/2013 12:00 AM Leg acy document. See document viewer. Care Teams Travel Attendants Relationship Specialty Start Date End Date Elsewhere, Pcp PCP - General Internal Medicine 05/29/24 [facility] 06/24/23 [facility] 06/24/23
--- NOTE | 2024-06-12 16:05 | ED_ITS ---
<Statement entered by Kyleigh Ignacio MD - 06/22/24 16:17> Inadvertently opened HPI - General Adult General Time Seen by Provider: 16:05 Date Seen: 06/12/24 Chief complaint: Hypertension Stated complaint: High blood pressure, feeling lousy, headache Time Seen by Provider: 06/12/24 16:01 Source: patient, RN notes reviewed and old records reviewed Mode of arrival: ambulatory Limitations: no limitations History of Present Illness HPI narrative: This 83-year-old female is independently ambulatory into the ED with concern of elevated blood pressure in just not feeling well today. She lives at [facility] in independent living which is across the road from , she walked over here. While walking over here, she developed a frontal headache but that had not been there until then. She notes she woke up at about 830, just was not feeling well, had been monitoring her blood pressure and was elevated. No headache prior to now, no chest pain, shortness of breath. She is had no neurologic changes on questioning, no visual changes. Her appetite is diminished but she did eat lunch, no nausea or vomiting, no abdominal pain, no diarrhea, no urinary symptoms. Outside of the mild headache, no new pain complaints. She does have stage IIIA chronic kidney disease and underlying hypertension. She is maintained on lisinopril 5 mg daily. She has not noted any ill contacts, she herself has not had any specific signs or symptoms of illness. She does have a chronic cough, states she gets postnasal drainage causing her to cough, her cough is not new and is unchanged. She has had no fevers or chills. Related Data Home Medications ?Medication ?Instructions ?Recorded ?Confirmed clobetasol 0.05 % topical ointment 1 applic topical QDAY 05/28/24 06/17/24 mometasone 0.1 % topical solution 1 applic topical QDAY 05/28/24 06/17/24 montelukast 10 mg tablet 10 mg PO QDAY 05/28/24 06/17/24 calcium carbonate 600 mg PO QDAY 06/09/24 06/17/24 Previous Rx's ?Medication ?Instructions ?Recorded lisinopril 5 mg tablet 5 mg PO DAILY #90 tabs 05/28/24 Allergies Allergy/AdvReac Type Severity Reaction Status Date / Time doxycycline Allergy Severe Eyes Verified 06/17/24 15:03 swelled shut erythromycin base Allergy Severe Eyes Verified 06/17/24 15:03 Swelled Shut atorvastatin (From Lipitor) AdvReac Unknown Muscle Verified 06/17/24 15:03 Pain & Weakness Review of Systems Status of ROS: Reports: 6 or more systems reviewed and unremarkable except as noted in History and below [facility] Medical History (Updated 06/17/24 @ 15:29 by Paulina Eugene MD) Dyslipidemia ?E78.5 - Hyperlipidemia, unspecified (ICD-10) Hallux valgus with bunions ?M20.10 - Hallux valgus (acquired), unspecified foot (ICD-10) ?M21.619 - Bunion of unspecified foot (ICD-10) Chronic cough ?R05.3 - Chronic cough (ICD-10) Nasal septal deviation ?J34.2 - Deviated nasal septum (ICD-10) History of adenomatous polyp of colon ?Z86.0101 - Personal history of adenomatous and serrated colon polyps (ICD- 10) Osteoporosis ?M81.0 - Age-related osteoporosis without current pathological fracture (ICD- 10) Sensorineural hearing loss (SNHL) of both ears ?H90.3 - Sensorineural hearing loss, bilateral (ICD-10) Hyperparathyroidism ?E21.3 - Hyperparathyroidism, unspecified (ICD-10) Hypercalcemia ?E83.52 - Hypercalcemia (ICD-10) Pes planus ?M21.40 - Flat foot [pes planus] (acquired), unspecified foot (ICD-10) Surgical History History of vaginal delivery History of right breast biopsy (1969) ?Z98.890 - Other specified postprocedural states (ICD-10) History of tonsillectomy (1949) ?Z90.89 - Acquired absence of other organs (ICD-10) History of cataract surgery ?Z98.49 - Cataract extraction status, unspecified eye (ICD-10) History of appendectomy (1989) ?Z90.49 - Acquired absence of other specified parts of digestive tract (ICD- 10) History of bilateral salpingectomy (1989) ?Z90.79 - Acquired absence of other genital organ(s) (ICD-10) Family History Mother Osteoporosis Anxiety disorder Maternal Grandmother Myocardial infarction, Onset Age: 70 Maternal Grandfather Myocardial infarction, Onset Age: 75 Paternal Grandmother Stroke, Onset Age: 72 Father Pacemaker Atrial fibrillation Social History Narrative: , 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, lives in independent living [facility], 5 adult children Chair exercises 3 times a week Lifetime nonsmoker Does not drink alcohol No drug use What is your current living situation?: I presently have a place to live Problems where you live: pests, such as bugs, ants, or mice In the past 12 months, utilities in danger of being shut off: no In past 12 months, lack of transportation kept you from medical appts, meetings, work, or getting things needed for daily living: no In the past 12 mos, have been you worried that your food would run out before you had money to buy more?: never true In the past 12 mos, the food you bought just didn't last and you didn't have money to buy more?: never true Smoking Status: Never smoker How often do you have a drink containing alcohol: never AUDIT-C Alcohol total score: 0 Non-prescribed substance use: denies use How often does anyone, including family, friends and others, physically hurt you : never How often does anyone, including family, friends and others, insult or talk down to you: never How often does anyone, including family, friends and others, threaten you with harm: never How often does anyone, including family, friends and others, scream or curse at you: never Health Related Social Needs: Inadequate housing (Z59.1) Exam Const: Vital Signs, click to edit/add: Vital Signs - 24 hr 06/12/24 15:57 06/12/24 16:30 06/12/24 16:33 Temperature 97.8 F Pulse Rate 69 Pulse Rate [Right Pulse Oximeter] 83 Respiratory Rate 18 17 Blood Pressure Blood Pressure [Ri ght Upper Arm] 182/68 H Pulse Oximetry 99 99 97 Oxygen Delivery Me thod Room Air 06/12/24 16:34 06/12/24 16:45 06/12/24 17:00 Temperature Pulse Rate 75 74 Pulse Rate [Right Pulse Oximeter] Respiratory Rate 18 19 21 Blood Pressure 151/58 H Blood Pressure [Ri ght Upper Arm] Pulse Oximetry 96 96 Oxygen Delivery Me thod 06/12/24 17:02 06/12/24 17:25 06/12/24 17:30 Temperature Pulse Rate 78 71 Pulse Rate [Right Pulse Oximeter] Respiratory Rate 19 24 16 Blood Pressure 157/65 H Blood Pressure [Ri ght Upper Arm] Pulse Oximetry 96 96 Oxygen Delivery Me thod 06/12/24 17:32 Temperature Pulse Rate 69 Pulse Rate [Right Pulse Oximeter] Respiratory Rate 23 Blood Pressure 145/60 H Blood Pressure [Ri ght Upper Arm] Pulse Oximetry 96 Oxygen Delivery Me thod This 83-year-old female is alert, interactive, no apparent distress. She is sitting up on the edge of the bed in exam room 1. Sclera clear, conjugate gaze, symmetrical facial function. She can speak in complete sentences, no hoarseness. Neck is supple, no jugular venous distension, no cervical adenopathy, no thyromegaly masses or nodules. Lungs are clear, good air entry, no wheezing or crackles, tachypnea, accessory muscle use. CV regular rate and rhythm, no murmur, normal S1-S2, no S3-S4. Abdomen is soft, nontender, nondistended, no organomegaly. She has some more prominent tissue of her lower extremities but there is no skin changes concerning for infection, no pitting edema. Again, patient ambulated from across the road over here into the ER of her own accord. She is using her arms and legs, no focal deficits noted. Documenting provider has reviewed patient's vital signs: yes Course Course ED Course: Reviewed with patient that we need to do blood work, obtain EKG. We will get a portable chest x-ray just ensure she is not developing something like pneumonia, ensure that cardiopulmonary structures appear normal. Given that she is developing a mild headache with her blood pressure being in the 180s systolic on arrival, will do a noncontrast head CT. We have only seen her on a couple of occasions before, systolic blood pressures were in the 130s. We have reviewed we may need to make recommendations on blood pressure management for her, need to see labs and obtain some data 1st. She is in agreement with the plan, demonstrates understanding. Reevaluation(s) Time of Reevaluation #1: 17:42 Reevaluation #1: Awaiting chemistries back, patient's most recent blood pressure was 145/60 without any intervention. Imaging has been done but not read by Radiology. Time of Reevaluation #2: 18:23 Reevaluation #2: Have reviewed with patient that her labs are returning normal. There is no evidence of any viral pathogen on the triple viral swab. We did review the hyperinflation on her chest x-ray in the radiologist commenting on pulmonary emphysema. They do not believe that she has ever been checked for this. With her chronic coughing, do think that she should have some screening pulmonary function tests and if indicated, referral for formal pulmonary function testing. They can do this through clinic. She wanted to know why she was not feeling well, reviewed with her that I do not have a specific etiology for her at this time. We ruled out some very important things. Subsequent blood pressure was systolic of 150 on her monitor on the last check before I came in. I have reviewed with her labile hypertension and risks of over treating with the blood pressure medicine and becoming hypotensive. She recollects that this has happened to her before. I would favor period of observation, see if she develops any other symptoms or concerns, be re-evaluated here through the weekend if need be. Otherwise ongoing monitoring and documenting of her blood pressures to follow up in clinic with primary care. They have appointment May 26 but I would prefer her being seen this next week for recheck. Her daughter is here at time of discharge and has been able to review all of this with us as well. Vital Signs Vital signs: Initial Vital Signs Temperature 97.8 F 06/12/24 15:57 Temperature Source Temporal Artery Scan 06/12/24 15:57 Pulse Rate 83 06/12/24 15:57 Pulse Rhythm Regular 06/12/24 15:57 Pulse Strength 3+ Normal 06/12/24 15:57 Respiratory Rate 18 06/12/24 15:57 Blood Pressure 182/68 H 06/12/24 15:57 Blood Pressure Mean 106 H 06/12/24 15:57 Blood Pressure Position Sitting 06/12/24 15:57 Pulse Oximetry 99 06/12/24 15:57 Oxygen Delivery Method Room Air 06/12/24 15:57 Vital Signs Temperature 97.8 F 06/12/24 15:57 Pulse Rate 83 06/12/24 15:57 Respiratory Rate 18 06/12/24 15:57 Blood Pressure 182/68 H 06/12/24 15:57 Pulse Oximetry 99 06/12/24 15:57 Oxygen Delivery Method Room Air 06/12/24 15:57 Temperature 97.8 F 06/12/24 15:57 Pulse Rate 89 06/12/24 18:30 Respiratory Rate 25 H 06/12/24 18:30 Blood Pressure 150/62 H 06/12/24 18:02 Pulse Oximetry 99 06/12/24 18:30 Oxygen Delivery Method Room Air 06/12/24 15:57 Medical Decision Making Lab Data Lab results reviewed: Yes I reviewed the patient's lab results Lab results narrative: Potassium is notably normal. Labs: Lab Results 06/12/24 06/12/24 06/12/24 Range/Units 16:26 16:55 17:25 WBC 6.28 (4.50-11.00) K/uL RBC 4.35 (4.00-5.20) m/uL Hgb 12.7 (12.0-16.0) gm/dL Hct 39.9 (33.0-51.0) % MCV 92 (80-100) fL MCH 29 (26-34) pg MCHC 32 (32-36) gm/dL RDW Coeff of [place] 13.7 (11.5-15.5) % Plt Count 245 (140-440) K/uL Neut % (Auto) 68.8 (42.0-72.0) % Lymph % (Auto) 19.3 L (20-44) % [place] % (Auto) 9.9 (0.0-11.0) % Eos % (Auto) 1.3 (0.0-7.0) % Baso % (Auto) 0.5 (0.0-3.0) % Neut # (Auto) 4.33 (1.7-7.0) K/uL Lymph # (Auto) 1.20 (0.90-2.90) K/uL [place] # (Auto) 0.60 (0.00-0.90) K/UL Eos # (Auto) 0.08 (0.00-0.50) K/uL Baso # (Auto) 0.03 (0.00-0.30) K/uL Abs Immat Gran (auto) 0.01 (0.00-0.30) K/uL Imm/Tot Granulo (auto) 0.2 % Sodium 135 (135-149) mmol/L Potassium 4.5 (3.6-5.1) mmol/L Chloride 102 (96-114) mmol/L Carbon Dioxide 31 (20-32) mmol/L Anion Gap 2 L (7-15) mEq/L BUN 28 (7-30) mg/dL Creatinine 1.0 (0.5-1.5) mg/dL Estimated Creat Clear 30.52 Estimated GFR 56 ml/min Glucose 102 (60-115) mg/dL Calcium 10.1 (8.4-10.6) mg/dL Total Bilirubin 0.4 (0.1-1.5) mg/dL AST 31 (12-35) U/L ALT 13 (4-35) U/L Alkaline Phosphatase 42 (40-150) U/L Troponin I < 0.01 (0.01-0.04) ng/mL C-Reactive Protein < 0.5 L (0.5-1.0) mg/dL NT-Pro-B Natriuret Pep 379 pg/mL Total Protein 7.0 (6.0-8.3) g/dL Albumin 4.3 (3.3-5.0) g/dL Urine Color Light yellow (Yellow) Urine Appearance Clear (Clear) Urine pH 6.5 (5.0-8.5) Ur Specific [place] 1.015 (1.000-1.030) Urine Protein Negative (Negative) Urine Glucose (UA) Negative (Negative) Urine Ketones Negative (Negative) Urine Blood Trace-intact A (Negative) Urine Nitrite Negative (Negative) Urine Bilirubin Negative (Negative) Urine Urobilinogen 0.2 (0.2-1.0) Ur Leukocyte Esterase Trace A (Negative) Urine RBC 0-2 (0-2) Urine WBC 0-2 (0-5) Ur Squamous Epith Cells None (None-Few) Urine Bacteria None (None) SARS-CoV-2 (PCR) Negative SARS-CoV-2 (Negative) Influenza Type A (PCR) Negative PCR FLU A (Negative) Influenza Type B (PCR) Negative PCR FLU B (Negative) RSV (PCR) Negative PCR RSV (Negative) Imaging Data CT scan - head: Attestation: I have reviewed the pertinent imaging results. Radiologist's impression: Patient: CAMELIA AMADOR Facility:?[facility] Patient ID:?[id number] Site Patient ID:?[id number]. Site :?[id number] Study:?CT-Head WO-06/12/2024 5:12:53 PM Ordering Physician:Сергей Francis Final Report: TECHNIQUE: Multiplanar CT examination of the head was performed without the use of intravenous contrast. INDICATION: Hypertension. Headache. COMPARISON: None. FINDINGS: No loss of reynoso-white differentiation to suggest recent territorial infarct. No intracranial hemorrhage, abnormal extra-axial fluid collection, hydrocephalus or midline shift. The ventricles and cerebral sulci are prominent caliber, compatible with moderate generalized parenchymal volume loss. There is patchy hypoattenuation of the supratentorial white matter diffusely, nonspecific but consistent with chronic microvascular ischemic changes. The basal cisterns are patent. The paranasal sinuses and mastoid air cells remain clear. The orbits and calvarium are unremarkable. The cerebellar tonsils are normal position. IMPRESSION: 1. No acute intracranial findings. 2. Mild generalized parenchymal volume loss with chronic microvascular ischemic changes. Please note that all CT scans at this facility use dose modulation, iterative reconstruction, and/or weight-based dosing when appropriate to reduce radiation dose to as low as reasonably achievable. Dictated by Chapo Thomson MD @ 06/12/2024 5:42:15 PM (Electronic Signature) Chest x-ray: Attestation: I have reviewed the pertinent imaging results. Radiologist's impression: Patient: CAMELIAMary AMADOR Facility:?[facility] Patient ID:?[id number] Site Patient ID:?[id number]. Site :?[id number] Study:?XRay-Chest 1V-06/12/2024 5:14:45 PM Ordering Physician:Сергей Francis Final Report: INDICATION: Hypertension. TECHNIQUE: Chest 1 views. COMPARISON: None. FINDINGS: Cardiovascular and mediastinum: Heart size and vasculature are normal in caliber and appearance. Lungs and pleural spaces: Pulmonary emphysema. No sign of infiltrate or mass. No sign of pleural effusion. No pneumothorax. Bones and soft tissues: No significant findings. IMPRESSION: Pulmonary emphysema. No acute or significant findings. Dictated by Frantz Hurtado MD @ 06/12/2024 6:00:46 PM (Electronic Signature) ECG Data Attestation: I personally reviewed and interpreted this ECG as follows: (Normal sinus rhythm, 70 beats per minute. Do see significant peaking of T-waves but no ischemic change. Incomplete right bundle branch block.) Prior ECG tracings: not available for review Discharge Plan Discharge Clinical Impression: Elevated blood pressure reading with diagnosis of hypertension Patient Disposition: Home, Self-Care Condition: Stable Instructions: Low-Sodium Diet (ED), Hypertension (ED) Additional Instructions: Continue to monitor blood pressure values and bring these to your follow-up with your primary care provider. I know you have an appointment on May 26 but would recommend that you get rechecked this next week. On the portable chest x- ray we did here, the lung markings showed changes concerning for emphysema per radiologist. I do think that you should have some screening pulmonary function test done and if abnormal, formal pulmonary function test should be done. You can review this with your primary care provider at follow-up. In the meantime, if you developed specific symptoms, concerning changes, feel you need to be re- evaluated in the ER, please return. Activity Level: Activity as Tolerated Prescriptions: No Action montelukast 10 mg tablet 10 mg PO QDAY clobetasol 0.05 % ointment 1 applic topical QDAY mometasone 0.1 % solution 1 applic topical QDAY lisinopril 5 mg tablet 5 mg PO DAILY Qty: 90 0RF calcium carbonate 600 mg calcium (1,500 mg) tablet 600 mg PO QDAY Follow Up/Referrals: Paulina Eugene MD [Primary Care Provider] - Stand Alone Forms: [employer] Info Instructions
--- NOTE | 2024-06-12 16:13 | CRLHL7_ITS ---
For Patients: As a result of the Century Cures Act, medical imaging exams and procedure reports are released immediately into your electronic medical record. You may view this report before your referring provider. If you have questions, please contact your health care provider. INDICATION: Hypertension. TECHNIQUE: Chest 1 views. COMPARISON: None. FINDINGS: Cardiovascular and mediastinum: Heart size and vasculature are normal in caliber and appearance. Lungs and pleural spaces: Pulmonary emphysema. No sign of infiltrate or mass. No sign of pleural effusion. No pneumothorax. Bones and soft tissues: No significant findings. IMPRESSION: Pulmonary emphysema. No acute or significant findings. Dictated by Frantz Hurtado MD @ 06/12/2024 6:00:46 PM (Electronically Signed)
--- NOTE | 2024-06-12 16:13 | CRLHL7_ITS ---
For Patients: As a result of the Century Cures Act, medical imaging exams and procedure reports are released immediately into your electronic medical record. You may view this report before your referring provider. If you have questions, please contact your health care provider. TECHNIQUE: Multiplanar CT examination of the head was performed without the use of intravenous contrast. INDICATION: Hypertension. Headache. COMPARISON: None. FINDINGS: No loss of reynoso-white differentiation to suggest recent territorial infarct. No intracranial hemorrhage, abnormal extra-axial fluid collection, hydrocephalus or midline shift. The ventricles and cerebral sulci are prominent caliber, compatible with moderate generalized parenchymal volume loss. There is patchy hypoattenuation of the supratentorial white matter diffusely, nonspecific but consistent with chronic microvascular ischemic changes. The basal cisterns are patent. The paranasal sinuses and mastoid air cells remain clear. The orbits and calvarium are unremarkable. The cerebellar tonsils are normal position. IMPRESSION: 1. No acute intracranial findings. 2. Mild generalized parenchymal volume loss with chronic microvascular ischemic changes. Please note that all CT scans at this facility use dose modulation, iterative reconstruction, and/or weight-based dosing when appropriate to reduce radiation dose to as low as reasonably achievable. Dictated by Chapo Thomson MD @ 06/12/2024 5:42:15 PM (Electronically Signed)
[2024-06-12 17:02] LABS: Basophils Absolute Auto 0.03 K/uL (0.00-0.30); Basophils Percent Auto 0.5 % (0.0-3.0); Eosinophils Absolute Auto 0.08 K/uL (0.00-0.50); Eosinophils Percent Auto 1.3 % (0.0-7.0); Hematocrit 39.9 % (33.0-51.0); Hemoglobin* 12.7 gm/dL (12.0-16.0); Immature Granulocytes Abs Auto 0.01 K/uL (0.00-0.30); Immature Granulocytes Pct Auto 0.2 %; Lymphocytes Percent Auto 19.3 % (20-44); Mean Corpuscular HGB Conc 32 gm/dL (32-36); Mean Corpuscular Hemoglobin 29 pg (26-34); Mean Corpuscular Volume 92 fL (80-100); Monocytes Percent Auto 9.9 % (0.0-11.0); Neutrophils Absolute Auto 4.33 K/uL (1.7-7.0); Neutrophils Percent Auto 68.8 % (42.0-72.0); Platelet Count* 245 K/uL (140-440); RDW Coefficient of Variation % 13.7 % (11.5-15.5); Red Blood Count 4.35 m/uL (4.00-5.20); White Blood Count* 6.28 K/uL (4.50-11.00)
--- OUTSIDE RECORDS SUMMARY | 2024-06-12 17:02 | XMS_ITS | Encounter Summary ---
Author Organization [facility] Address [address] [place] [address] Care Team Providers Care Wedding Florist Name Role Phone Elsewhere, Pcp Primary Care Provider Unavailabl e Encounter Details Date Type Department Care Team (Late st Contact Info) Description 05/13/2009 Historical Ophthalmology [facility] Richard Cheema M.D. 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 CDM Reports - EYEGEN Id: [id number] Status: Fnl documented in this encounter Plan of Treatment Not on file documented as of this encounter Visit Diagnoses Not on filedocumented in this encounter Care Teams Wedding Florist Relationship Specialty Start Date End Date Elsewhere, Pcp PCP - General Internal Medicine 05/29/24 [facility] [place] [facility] 06/24/23 [facility] 06/24/23 documented as of this encounter
--- OUTSIDE RECORDS SUMMARY | 2024-06-12 17:02 | XMS_ITS | Encounter Summary ---
Author Organization [facility] Address [address] [place] [address] Care Team Providers Care Fishing Captain Name Role Phone Elsewhere, Pcp Primary Care Provider Unavailabl e Encounter Details Date Type Department Care Team (Late st Contact Info) Description 11/03/2009 Historical Ophthalmology [facility] Amilcar Ramirez M.D. [address] [place] [address] Social History Tobacco Use Types Packs/Day Years Used Date Smoking Tobacco: Never Assessed Comments Unknown Sex and Gender Information Value Date Recorded Sex Assigned at Female 07/19/2023 8:25 PM CDT Legal Sex Female 7:06 AM CAMPUS RECRUITING COORDINATOR Gender Identity Female 02/05/2017 9:47 AM CAMPUS RECRUITING COORDINATOR Sexual Orientation Straight 02/05/2017 9: 47 AM CAMPUS RECRUITING COORDINATOR documented as of this encounter Progress Notes [...] narrow angles CDM Reports - EYEGEN Id: [id number] Status: Fnl documented in this encounter Plan of Treatment Not on file documented as of this encounter Visit Diagnoses Not on filedocumented in this encounter Care Teams Fishing Captain Relationship Specialty Start Date End Date Elsewhere, Pcp PCP - General Internal Medicine 05/29/24 [facility] [place] [facility] 06/24/23 [facility] 06/24/23 documented as of this encounter
--- OUTSIDE RECORDS SUMMARY | 2024-06-12 17:02 | XMS_ITS | Encounter Summary ---
Author Organization [facility] Address [address] [place] [address] Care Team Providers Care Cushion Former Name Role Phone Elsewhere, Pcp Primary Care Provider Unavailabl e Encounter Details Date Type Department Care Team (Late st Contact Info) Description 11/12/2016 Historical Ophthalmology [facility] Afshin Gloria Jr., M.D. [address] [place] [address] Social History Tobacco Use Types Packs/Day Years Used Date Smoking Tobacco: Never Comments Unknown Sex and Gender Information Value Date Recorded Sex Assigned at Female 07/19/2023 8:25 PM CDT Legal Sex Female 7:06 AM DOCTOR OF DENTAL SURGERY Gender Identity Female 02/05/2017 9:47 AM DOCTOR OF DENTAL SURGERY Sexual Orientation Straight 02/05/2017 9: 47 AM DOCTOR OF DENTAL SURGERY documented as of this encounter Progress Notes [...] PVD VF CDM Reports - EYEGEN Id: [id number] Status: Fnl documented in this encounter Plan of Treatment Not on file documented as of this encounter Visit Diagnoses Not on filedocumented in this encounter Additional Health Concerns Assessment Noted Time PHQ-9 Depression Total Score: 1 10/27/19 17 8:59 AM CDT documented as of this encounter Care Teams Cushion Former Relationship Specialty Start Date End Date Elsewhere, Pcp PCP - General Internal Medicine 05/29/24 [facility] [place] [facility] 06/24/23 [facility] 06/24/23 documented as of this encounter
--- OUTSIDE RECORDS SUMMARY | 2024-06-12 17:03 | XMS_ITS | Encounter Summary ---
Author Organization [facility] Address [address] [place] [address] Care Team Providers Care Hydrogen Power Plant Engineer Name Role Phone Elsewhere, Pcp Primary Care Provider Unavailabl e Encounter Details Date Type Department Care Team (Late st Contact Info) Description 01/24/2010 Historical Ophthalmology [facility] Chuck Ruiz M.D., M.S. [address] [place] [address] Social History Tobacco Use Types Packs/Day Years Used Date Smoking Tobacco: Never Assessed Comments Unknown Sex and Gender Information Value Date Recorded Sex Assigned at Female 07/19/2023 8:25 PM CDT Legal Sex Female 7:06 AM FRAME AND SCRAP CRUSHER Gender Identity Female 02/05/2017 9:47 AM FRAME AND SCRAP CRUSHER Sexual Orientation Straight 02/05/2017 9: 47 AM FRAME AND SCRAP CRUSHER documented as of this encounter Progress Notes * Chuck Ruiz M.D. - 01/24/2010 8:58 AM CST Eye Postoperative MULTI-VISIT DOCUMENT This document contains multiple patient visits and is available for review in Document Viewer. CDM Reports - EYEPO Id: [id number] Status: Fnl documented in this encounter Plan of Treatment Not on file documented as of this encounter Visit Diagnoses Not on filedocumented in this encounter Care Teams Hydrogen Power Plant Engineer Relationship Specialty Start Date End Date Elsewhere, Pcp PCP - General Internal Medicine 05/29/24 [facility] Optometry 06/24/23 [facility] Dental Dentistry 06/24/23 documented as of this encounter
--- OUTSIDE RECORDS SUMMARY | 2024-06-12 17:03 | XMS_ITS | Encounter Summary ---
Author Organization [facility] Address [address] [place] [address] Care Team Providers Care Rail Project Engineer Name Role Phone Elsewhere, Pcp Primary Care Provider Unavailabl e Encounter Details Date Type Department Care Team (Late st Contact Info) Description 10/15/2013 Historical Ophthalmology [facility] Afshin Gloria Jr., M.D. [address], [place] [address] Social History Tobacco Use Types Packs/Day Years Used Date Smoking Tobacco: Never Assessed Comments Unknown Sex and Gender Information Value Date Recorded Sex Assigned at Female 07/19/2023 8:25 PM CDT Legal Sex Female 7:06 AM TIME PIECE REPAIRER Gender Identity Female 02/05/2017 9:47 AM TIME PIECE REPAIRER Sexual Orientation Straight 02/05/2017 9: 47 AM TIME PIECE REPAIRER documented as of this encounter Progress Notes * Afshin Gloria M.D. - 10/15/2013 9:12 AM CDT Eye General CHIEF COMPLAINT Pt here for complete eye exam No Va co's IMPRESSION / REPORT / PLAN A) Stable ERM, stable IOL ou P) Hold on MR, rto 1 year CDM Reports - EYEGEN Id: [id number] Status: Fnl documented in this encounter Plan of Treatment Not on file documented as of this encounter Visit Diagnoses Not on filedocumented in this encounter Additional Health Concerns Assessment Noted Time PHQ-9 Depression Total Score: 2 07/08/19 14 10:05 AM CDT documented as of this encounter Care Teams Rail Project Engineer Relationship Specialty Start Date End Date Elsewhere, Pcp PCP - General Internal Medicine 05/29/24 [facility] [place] Optometry 06/24/23 [facility] Dental Dentistry 06/24/23 documented as of this encounter
--- OUTSIDE RECORDS SUMMARY | 2024-06-12 17:03 | XMS_ITS | Encounter Summary ---
Author Organization [facility] Address [address] [place] [address] Care Team Providers Care Administrative Underwriter Name Role Phone Elsewhere, Pcp Primary Care Provider Unavailabl e Encounter Details Date Type Department Care Team (Late st Contact Info) Description 11/24/2009 Historical Ophthalmology [facility] O[facility] Amilcar Ramirez M.D. [address] [place] [address] Social History Tobacco Use Types Packs/Day Years Used Date Smoking Tobacco: Never Assessed Comments Unknown Sex and Gender Information Value Date Recorded Sex Assigned at Female 07/19/2023 8:25 PM CDT Legal Sex Female 7:06 AM GLASS LAMINATING OPERATOR Gender Identity Female 02/05/2017 9:47 AM GLASS LAMINATING OPERATOR Sexual Orientation Straight 02/05/2017 9: 47 AM GLASS LAMINATING OPERATOR documented as of this encounter Progress Notes [...] RIGHT eye after CE/IOL RIGHT by Dr. Glroia - post operatively DIAGNOSIS #1 Full thickness macular hole, RIGHT eye #2 trace epiretinal membrane, BOTH eyes #3 Cataracts, LEFT eye #4 Pseuodophakic, RIGHT eye #5 significantly narrow angle, LEFT CDM Reports - EYEGEN Id: [id number] Status: Fnl documented in this encounter Plan of Treatment Not on file documented as of this encounter Visit Diagnoses Not on filedocumented in this encounter Care Teams Administrative Underwriter Relationship Specialty Start Date End Date Elsewhere, Pcp PCP - General Internal Medicine 05/29/24 [facility] [place] Optometry 06/24/23 [facility] Dentistry 06/24/23 documented as of this encounter
--- OUTSIDE RECORDS SUMMARY | 2024-06-12 17:03 | XMS_ITS | Encounter Summary ---
Author Organization [facility] Address [address] [place] [address] Care Team Providers Care Electrical Manager Name Role Phone Elsewhere, Pcp Primary Care Provider Unavailabl e Encounter Details Date Type Department Care Team (Late st Contact Info) Description 10/22/2014 Historical Ophthalmology [facility] Afshin Gloria Jr., M.D. [address] [place] [address] Social History Tobacco Use Types Packs/Day Years Used Date Smoking Tobacco: Never Assessed Comments Unknown Sex and Gender Information Value Date Recorded Sex Assigned at Female 07/19/2023 8:25 PM CDT Legal Sex Female 7:06 AM DIGITAL ACCOUNT MANAGER Gender Identity Female 02/05/2017 9:47 AM DIGITAL ACCOUNT MANAGER Sexual Orientation Straight 02/05/2017 9: 47 AM DIGITAL ACCOUNT MANAGER documented as of this encounter Progress Notes * Afshin Gloria M.D. - 10/22/2014 9:37 AM CDT Eye General CHIEF COMPLAINT CE HISTORY OF PRESENT ILLNESS Pt here for complete eye exam No Va co's IMPRESSION / REPORT / PLAN A) Stable eye exam P) Zaditor BID x 2 weeks, then prn CDM Reports - EYEGEN Id: [id number] Status: Fnl documented in this encounter Plan of Treatment Not on file documented as of this encounter Visit Diagnoses Not on filedocumented in this encounter Additional Health Concerns Assessment Noted Time PHQ-9 Depression Total Score: 0 07/14/19 15 10:04 AM CDT documented as of this encounter Care Teams Electrical Manager Relationship Specialty Start Date End Date Elsewhere, Pcp PCP - General Internal Medicine 05/29/24 [facility] [place] Optometry 06/24/23 [facility] Dental Dentistry 06/24/23 documented as of this encounter
--- OUTSIDE RECORDS SUMMARY | 2024-06-12 17:03 | XMS_ITS | Encounter Summary ---
Author Organization [facility] Address [address] [place] [address] Care Team Providers Care Maintenance Associate Name Role Phone Elsewhere, Pcp Primary Care Provider Unavailabl e Encounter Details Date Type Department Care Team (Late st Contact Info) Description 06/28/2010 Historical Ophthalmology [facility] Amilcar Ramirez M.D. [address] [place] [address] Social History Tobacco Use Types Packs/Day Years Used Date Smoking Tobacco: Never Assessed Comments Unknown Sex and Gender Information Value Date Recorded Sex Assigned at Female 07/19/2023 8:25 PM CDT Legal Sex Female 7:06 AM HOT MILL SHEARER Gender Identity Female 02/05/2017 9:47 AM HOT MILL SHEARER Sexual Orientation Straight 02/05/2017 9: 47 AM HOT MILL SHEARER documented as of this encounter Progress Notes * Amilcar Ramirez M.D. - 06/28/2010 7:11 AM CDT Eye General CHIEF COMPLAINT check up after surgery HISTORY OF PRESENT ILLNESS Patient states that since last visit here in January 2010, she had cataract surgery on her left eye in March by Dr. Gloria in [place], [place]. She did get new glasses since [...] BOTH eyes CDM Reports - EYEGEN Id: [id number] Status: Fnl documented in this encounter Plan of Treatment Not on file documented as of this encounter Visit Diagnoses Not on filedocumented in this encounter Care Teams Maintenance Associate Relationship Specialty Start Date End Date Elsewhere, Pcp PCP - General Internal Medicine 05/29/24 [facility] [place] Optometry 06/24/23 [facility] Dentistry 06/24/23 documented as of this encounter
--- OUTSIDE RECORDS SUMMARY | 2024-06-12 17:03 | XMS_ITS | Encounter Summary ---
Author Organization [facility] Address [address] [place] [address] Care Team Providers Care Dye Line Operator Name Role Phone Elsewhere, Pcp Primary Care Provider Unavailabl e Encounter Details Date Type Department Care Team (Late st Contact Info) Description 02/08/2010 Historical Ophthalmology [facility] OPH Amilcar Ramirez M.D. [address] [place] [id number] Social History Tobacco Use Types Packs/Day Years Used Date Smoking Tobacco: Never Assessed Comments Unknown Sex and Gender Information Value Date Recorded Sex Assigned at Female 07/19/2023 8:25 PM CDT Legal Sex Female 7:06 AM COMMUNICATIONS LEAD Gender Identity Female 02/05/2017 9:47 AM COMMUNICATIONS LEAD Sexual Orientation Straight 02/05/2017 9: 47 AM COMMUNICATIONS LEAD documented as of this encounter Progress Notes * Amilcar Ramirez M.D. - 02/08/2010 9:35 AM CST Eye Postoperative MULTI-VISIT DOCUMENT This document contains multiple patient visits and is available for review in Document Viewer. CDM Reports - EYEPO Id: [id number] Status: Fnl documented in this encounter Plan of Treatment Not on file documented as of this encounter Visit Diagnoses Not on filedocumented in this encounter Care Teams Dye Line Operator Relationship Specialty Start Date End Date Elsewhere, Pcp PCP - General Internal Medicine 05/29/24 [facility] Eye [facility] Optometry 06/24/23 [facility] Dental Dentistry 06/24/23 documented as of this encounter
--- OUTSIDE RECORDS SUMMARY | 2024-06-12 17:03 | XMS_ITS | Clinical Summary ---
Author Organization [facility] Address [address] [place] [address] Care Team Providers Care Topographical Surveyor Name Role Phone Pcp, No Primary Care [...] on file Legal Sex Female 5:20 AM LITHOGRAPHER APPRENTICE Gender Identity Not on file Sexual Orientation [...] MEDICARE PART B HB ONLY [place] [address] MEDICARE PART B HB ONLY MEDICARE PART A HB ONLY BLUE CROSS [place] BLUE HB ONLY BLUE CROSS [place] BLUE MR PB ONLY Advance Directives Documents on File Type Date Recorded Patient Information Technology Associate Expl anation Healthcare Directive 07/07/2013 11:49 AM D OH EFFECTIVE 11/24/2009 Healthcare Directive 08/17/2011 12:00 AM A DVANCE DIRECTIVE Power of Construction Accountant 08/16/2011 12:00 AM POA * Full Code (Latest Code Status on File) Date Activated Date Inactivated Comments 12/19/2015 8:30 AM 12/19/2015 1:25 PM Care Teams Topographical Surveyor Relationship Specialty Start Date End Date Pcp, No . PCP - General 10/20/19
--- OUTSIDE RECORDS SUMMARY | 2024-06-12 17:03 | XMS_ITS | Encounter Summary ---
Author Organization [facility] Address [address] [place] [address] Care Team Providers Care Fine Arts Chair Name Role Phone Elsewhere, Pcp Primary Care Provider Unavailabl e Encounter Details Date Type Department Care Team (Late st Contact Info) Description 11/10/2015 Historical Ophthalmology [facility] Afshin Gloira Jr., M.D. [address] [place] [address] Social History Tobacco Use Types Packs/Day Years Used Date Smoking Tobacco: Never Assessed Comments Unknown Sex and Gender Information Value Date Recorded Sex Assigned at Female 07/19/2023 8:25 PM CDT Legal Sex Female 7:06 AM SAND MILL OPERATOR FACING SAND Gender Identity Female 02/05/2017 9:47 AM SAND MILL OPERATOR FACING SAND Sexual Orientation Straight 02/05/2017 9: 47 AM SAND MILL OPERATOR FACING SAND documented as of this encounter Progress Notes [...] PVD VF CDM Reports - EYEGEN Id: [id number] Status: Fnl documented in this encounter Plan of Treatment Not on file documented as of this encounter Visit Diagnoses Not on filedocumented in this encounter Additional Health Concerns Assessment Noted Time PHQ-9 Depression Total Score: 1 10/26/19 16 8:44 AM CDT documented as of this encounter Care Teams Fine Arts Chair Relationship Specialty Start Date End Date Elsewhere, Pcp PCP - General Internal Medicine 05/29/24 [facility] [place] Optometry 06/24/23 [facility] Dental Dentistry 06/24/23 documented as of this encounter
--- OUTSIDE RECORDS SUMMARY | 2024-06-12 17:03 | XMS_ITS | Clinical Summary ---
Author Organization [facility] Address [address] [place] [address] Care Team Providers Care Magazine Repairer Name Role Phone Elsewhere, Pcp Primary Care Provider Unavailabl e Source Comments Patient records contain information from all sites at [facility]. For routine questions regarding patient records, call [phone] during business hours, M-F 8:00 AM - 5:00 PM Central Time. Record requests for emergency care only can be directed to [phone] at any time.[facility] Allergies Active Allergy Reactions Criticality Noted Date [...] Description 04/21/2024 Orders Only [facility] PCP [facility] Saniya Shea M.D. Screening Examination Diabetes [...] History Relation Name Comments Hyperlipidemia Daughter 1 Neyr Hyperlipidemia Daughter 2 [place] No Known Problems Daughter 3 Lindsey No Known Problems Daughter 4 Maddison Hyperlipidemia Daughter 5 [place] Westrum Migraines Daughter 5 [place] Westrum Coronary artery disease Father Jose Enrique Trevino Hyperlipidemia Father Jose Enrique Trevino Pacemaker rhythm Father Jose Enrique Trevino Breast cancer Father's Sister 1 Breast [...] drink = 0.6 oz pur e alcohol) [facility] [employer] Answer Date Recorded In the past 12 months has [facility] [employer], [employer], or water [employer] threatened to shut off services in your [...] week 12/05/2020 How often do you attend [facility] or nondenominational services? More than 4 times per year 12/05/2020 Do you belong to any clubs o r organizations such as moravian groups, unions, fraternal or athletic groups, or [...] Answer Date Recorded PHQ-2 Score 0 06/24/2023 [facility] - Occupational Stress Questionnaire Answer Date [...] your living situation today? I have a [facility] place to live 07/19/2023 Education Answer Date Recorded What is the highest level of school you have completed or the highest degree you have received? 12th grade 12/05/2020 Comments No Sex and Gender Information Value Date Recorded Sex Assigned at Female 07/19/2023 8:25 PM CDT Legal Sex Female 7:06 AM FLOOR COVERER Gender Identity Female 02/05/2017 9:47 AM FLOOR COVERER Sexual Orientation Straight 02/05/2017 9: 47 AM FLOOR COVERER Last Filed Vital Signs Vital Sign Reading Time Taken Comments Blood Pressure 133/71 01/31/2024 11:23 AM FLOOR COVERER Pulse 72 01/31/2024 11:23 AM FLOOR COVERER Temperature 36.5 C (97.7 F) 01/31/2024 11:23 AM FLOOR COVERER Respiratory Rate 16 01/31/2024 11:23 AM FLOOR COVERER Oxygen Saturation 98% 01/31/2024 11:23 AM FLOOR COVERER Inhaled Oxygen Concentration - - Weight 42.7 [...] Note: Continue Medical Devices Implanted Type Area Service Counter Cashier Device Identifier Shelf Expiration Date Model / Serial / Lot Ocular Lens Ocular Lens Eye Procedures Procedure Name Priority Date/Time Associated Diagnosis Comments CREATININE WITH EGFR, S/P Routine 01/31/2024 10:26 AM FLOOR COVERER 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 Blood (Blood, Venous) 01/31/2024 10:26 AM FLOOR COVERER 01/31/2024 10:30 AM FLOOR COVERER Deborah Ray APRN, C.N.P. LAB BLOOD ADD-ON Fi nal Result [facility] [address] [place] [address], [place] NPRG [facility] [address] [place] [address] * Sodium (07/16/2023 8:51 AM CDT) Sodium, P 138 135 - 145 mmol/L 07/16/2023 11:22 AM CDT NPRG Blood (Blood, Venous) 07/16/2023 8:51 AM CDT 07/16/2023 10:44 AM CDT Saniya Shea M.D. LAB BLOOD ADD-ON Final Resu lt [facility] [address] [place] [address], [facility] NPRG [place] [address] [place] [address] * Potassium (07/16/2023 8:51 AM CDT) Potassium, P 4.3 3.6 - 5.2 mmol/L 07/16/2023 11:22 AM CDT NPRG Blood (Blood, Venous) 07/16/2023 8:51 AM CDT 07/16/2023 10:44 AM CDT us Saniya Shea M.D. LAB BLOOD ADD-ON Final Resu lt Performing Organization Address City/[facility]/ZIP Co de Phone Number [facility] [address] [place] [address], [facility] NPRG [place] [address] [place] [address] * Hemoglobin A1c (07/16/2023 8:51 AM CDT) Hemoglobin A1c, B 5.5 4.2 - 5.6 % 07/16/2023 11:26 AM CDT NPRG Blood (Blood, Venous) 07/16/2023 8:51 AM CDT 07/16/2023 10:44 AM CDT Saniya Shea M.D. LAB BLOOD ADD-ON Final Resu lt [facility] [address] [place] [address], [facility] NPRG [place] [address] [place] [address] * BI Breast Screening Bilateral with Tomosynthesis (12/29/2020 9:14 AM FLOOR COVERER) Anatomical Region Laterality Modality Breast, Breast Imaging RST L OS, Breast Imaging ARZ LOS, Breast Imaging FLA LOS Bilateral Mammography 12/29/2020 12:5 5 PM FLOOR COVERER Impressions 12/29/2020 12:56 PM FLOOR COVERER Negative. RECOMMENDATION: Annual Screening Mammogram ASSESSMENT: BI-RADS: 1: Negative. Narrative 12/29/2020 12:56 PM FLOOR COVERER EXAM: BI BREAST SCREENING BILATERAL WITH TOMOSYNTHESIS [...] Most Recently Relevant to Health Maintenance Insurance [facility] MEDICARE Advance Directives For more information, please contact: [phone] Documents on File Type Date Recorded Patient Pattern Developer Expl anation Advance Directives 08/12/2013 12:00 AM Leg acy document. See document viewer. Care Teams Magazine Repairer Relationship Specialty Start Date End Date Elsewhere, Pcp PCP - General Internal Medicine 05/29/24 [facility] [place] Optometry 06/24/23 [facility] Dental Dentistry 06/24/23
[2024-06-12 17:04] LABS: Slide Review Reflex No
[2024-06-12 17:22] LABS: PCR FLU A Negative PCR FLU A (Negative); PCR FLU B Negative PCR FLU B (Negative); PCR RSV Negative PCR RSV (Negative); SARS PCR* Negative SARS-CoV-2 (Negative)
[2024-06-12 17:46] LABS: Appearance Urine Clear (Clear); Bilirubin Urine Negative (Negative); Blood Urine Trace-intact (Negative); Color Urine Light yellow (Yellow); Glucose Urine Negative (Negative); Ketones Urine Negative (Negative); Leukocyte Esterase Urine Trace (Negative); Nitrite Urine Negative (Negative); Protein Urine Negative (Negative); RBC Urine 0-2 (0-2); Specific Gravity Urine 1.015 (1.000-1.030); Urobilinogen Urine 0.2 (0.2-1.0); WBC Urine 0-2 (0-5); pH Urine 6.5 (5.0-8.5)
[2024-06-12 17:53] LABS: C Reactive Protein* < 0.5 mg/dL (0.5-1.0); NT Pro B Type NatriureticPept* 379 pg/mL; Troponin I* < 0.01 ng/mL (0.01-0.04)
[2024-06-12 17:55] LABS: Anion Gap 2 mEq/L (7-15); Blood Urea Nitrogen* 28 mg/dL (7-30); Calcium* 10.1 mg/dL (8.4-10.6); Carbon Dioxide* 31 mmol/L (20-32); Chloride* 102 mmol/L (96-114); Est. Creatinine Clearance* 30.52; Estimated Glomerular Filt Rate 56 ml/min; Potassium* 4.5 mmol/L (3.6-5.1); Sodium* 135 mmol/L (135-149)
[2024-06-12 17:56] LABS: Alanine Aminotransferase* 13 U/L (4-35); Albumin* 4.3 g/dL (3.3-5.0); Alkaline Phosphatase* 42 U/L (40-150); Aspartate Amino Transferase* 31 U/L (12-35); Bilirubin Total* 0.4 mg/dL (0.1-1.5); Glucose* 102 mg/dL (60-115)
== END 2024-06-12 18:37 | disposition home or self-care (01) ==
PROVIDERS: Emergency Provider Family Medicine; PCP Family Medicine
DX: I10 Essential (primary) hypertension (principal); R39.9 Unspecified symptoms and signs involving the genitourinary system; R06.09 Other forms of dyspnea
CPT/HCPCS: 36415; 70450; 71045; 80053; 81001; 83880; 84484; 85025; 86140; 87086; 87631; 93005; 94761; 99281; 99284; 99285

== ENCOUNTER 2024-06-19 09:15 | Outpatient (CLI) | payer MEDICARE, SELFPAY | END 2024-06-19 09:16 | disposition home or self-care (01) | LOC: NFLDREF 06-24 19:05 | PROVIDERS: PCP Family Medicine; Referring Provider Family Medicine; Visit Provider Family Medicine | DX: M81.0 Age-related osteoporosis without current pathological fracture (principal); E78.2 Mixed hyperlipidemia; E21.3 Hyperparathyroidism, unspecified | CPT/HCPCS: 80053; 80061; 82306; 83970 ==